=== PATIENT | male | born 1935 | race Caucasian/White ===

== ENCOUNTER 2017-01-12 05:09 | Day surgery (SDC) | payer MEDICARE, OTHER ==
[2017-01-12] MEDS ORDERED: Midazolam 1 MG/ML 2 ML SDV ONE (06:14)
[2017-01-12] MEDS ORDERED: fentaNYL 100 MCG/2 ML SDV ONE (06:15)
[2017-01-12] MEDS ORDERED: Sodium Chloride 0.9% 10 ML Syringe FLUSH PRN (06:21)
[2017-01-12] MEDS ORDERED: fentaNYL 100 MCG/2 ML SDV IV ONE ×3 (06:28→16:41)
[2017-01-12] MEDS ORDERED: Midazolam 1 MG/ML 2 ML SDV IV ONE ×3 (06:30→16:41)
[2017-01-12] MEDS ORDERED: Dextrose 5%-0.45% NaCl 1,000 ML IV SCH (06:30)
--- NOTE | 2017-01-12 06:53 | OR ---
DATE: 01/12/2017 PROCEDURE: Total colonoscopy. INSTRUMENT USED: CF-H180AL Olympus video colonoscope. PREMEDICATIONS: Fentanyl 100 mcg intravenous, Versed 1.5 mg intravenous, nasal O2 cannula. The procedure was done under pulse oximetry, BP recording, and mop handle assembler. INDICATION: The patient with previous colon resection for cancer. Surveillance colonoscopy examination is done for detection of any polypoid lesions and removal, endoscopic hemostasis therapy if needed. DESCRIPTION OF PROCEDURE: Initial rectal exam was unremarkable. Rigid anoscopy was normal. The colonoscope was passed with ease up to the surgical site, photographs were taken. No bleeding was noted from any of the visualized areas at the commencement of the examination. No stricture. No vascular ectasia. No large isolated ulcerations seen. No evidence of diffuse inflammatory bowel disease in the form of friability, contact bleeding, or ulcerations. No polyp or tumor mass identified. Probing the proximal sides of folds and flexures, using adequate distention and clearing of the stool material, withdrawal of the scope was made. No bleeding was noted from any of the visualized areas at the completion of examination. IMPRESSION: Normal study. The patient tolerated the procedure well. [facility] /[id number]
[2017-01-12 09:09] VITALS: BP 109/68
--- NOTE | 2017-01-12 12:14 | LETTER ---
01/12/2017 Amari Celestin MD Oncology [facility] [address] [address] RE: DIEGO GUPTAMOND : [address] Celestin Mr[address] Diego Gupta had colonoscopic examination done this morning and he tolerated the procedure well. I herewith send a copy of the endoscopy note and photographs for your review. Thank you. Sincerely, [facility] /[id number]
== END 2017-01-12 08:44 | disposition home or self-care (01) ==
LOC: DL.ENDO 05:09
PROVIDERS: ATTEND Internal Medicine Gastroenterology
DX: Z12.11 Encounter for screening for malignant neoplasm of colon (principal); I12.9 Hypertensive chronic kidney disease with stage 1 through stage 4 chronic kidney disease, or unspecified chronic kidney disease; N18.9 Chronic kidney disease, unspecified; E78.5 Hyperlipidemia, unspecified; K21.9 Gastro-esophageal reflux disease without esophagitis; I25.10 Atherosclerotic heart disease of native coronary artery without angina pectoris; I67.9 Cerebrovascular disease, unspecified
CPT/HCPCS: 45378; J2250; J3010; J7042

== ENCOUNTER 2018-01-22 21:44 | Emergency (ER) | payer MEDICARE, OTHER ==
[2018-01-22] MEDS ORDERED: Sodium Chloride 0.9% 1,000 ML IV ONE (22:14)
[2018-01-22] MEDS ORDERED: Metoclopramide 10 MG/2 ML SDV IVPUSH ONE (22:14)
[2018-01-22 22:24] VITALS: BP 140/81
--- NOTE | 2018-01-22 22:24 | EDM.PDOC ---
ED HPI GENERAL MEDICAL PROBLEM - General Chief Complaint: Abdominal Pain Stated Complaint: ABD PAIN Time Seen by Provider: 01/22/18 22:15 Source of Information: Reports: Patient, Family History Limitations: Reports: No Limitations - History of Present Illness INITIAL COMMENTS - FREE TEXT/NARRATIVE: abdominal pain and vomiting while eating supper, increase in hernia size and pain Middle Abdomen Pain Score (Numeric/FACES): 3 - Related Data Allergies Allergy/AdvReac Type Severity Reaction Status Date / Time No Known Allergies Allergy Verified 01/22/18 22:27 Home Meds: Home Meds Aspirin [Ecotrin] 81 mg PO DAILY 11/15/13 [History] Calcium Carbonate [Tums] 500 mg PO DAILY PRN 11/15/13 [History] Cholecalciferol (Vitamin D3) [Vitamin D3] 1,000 unit PO DAILY 11/15/13 [History] Clopidogrel [Plavix] 75 mg PO DAILY 11/15/13 [History] Multivitamin [Multi Vitamin Daily] 1 each PO DAILY 11/15/13 [History] [place]-3S/DHA/Epa/Fish Oil/D3 [Fish Wzx-[place]-0-Vit D Softgel] 2 gm PO DAILY [History] Ascorbic Acid 500 mg PO DAILY 03/13/15 [History] Calcium Polycarbophil [Fiber Tabs] 4 - 6 cap PO DAILY PRN 03/13/15 [History] Lisinopril 10 mg PO DAILY 03/13/15 [History] Pantoprazole [Protonix] 40 mg PO DAILY 03/13/15 [History] Donepezil [Aricept] 5 mg PO DAILY 01/09/17 [History] atorvaSTATin [Lipitor] 40 mg PO DAILY 01/09/17 [History] Past Medical History HEENT History: Reports: Impaired Vision, Other (See Below) Other HEENT History: WEARS CORRECTIVE LENS. UPPER DENTURE PLATE. LOWER PARTIAL PLATE Cardiovascular History: Reports: CAD, High Cholesterol, Hypertension Other Cardiovascular History: CEREBROVASCULAR DISEASE; CAROTID ARTERY DISEASE Respiratory History: Reports: None Gastrointestinal History: Reports: GERD, Other (See Below) Other Gastrointestinal History: ESOPHAGEAL MOTILITY DISORDER;. MULTIPLE ADENOMATOUS POLYPS. HX OF COLON CA REQUIRING RESECTION. INCISIONAL HERNIA Genitourinary History: Reports: Chronic Renal Insuffiency, Other (See Below) Other Genitourinary History: CHRONIC KIDNEY DISEASE (STAGE 3) Musculoskeletal History: Reports: Arthritis, Back Pain, Chronic Other Musculoskeletal History: SCIATICA OF RIGHT SIDE; KNEE PAIN Neurological History: Reports: TIA, Other (See Below) Other Neuro History: MEMORY IMPAIRMENT. CEREBROVASCULAR DISEASE Psychiatric History: Reports: Anxiety, Depression, Mood Swings, Panic Attack Endocrine/Metabolic History: Reports: None Other Endocrine/Metabolic History: PRE-DIABETES Hematologic History: Reports: Other (See Below) Other Hematologic History: HYPERLIPIDEMIA Immunologic History: Reports: None Oncologic (Cancer) History: Reports: Colon Dermatologic History: Reports: Eczema - Infectious Disease History Infectious Disease History: Reports: Chicken Pox, Measles - Past Surgical History HEENT Surgical History: Reports: Oral Surgery Cardiovascular Surgical History: Reports: Coronary Artery Bypass, Other (See Below) GI Surgical History: Reports: Colon, Other (See Below) Social & Family History - Caffeine Use Caffeine Use: Reports: Coffee Other Caffeine Use: AVERAGE OF 600 OZ DAILY DRINKS CONSTANTLY ED ROS GENERAL - Review of Systems Review Of Systems: See Below Constitutional: Denies: Fever HEENT: Reports: No Symptoms Respiratory: Reports: No Symptoms Cardiovascular: Reports: No Symptoms Endocrine: Reports: No Symptoms GI/Abdominal: Reports: Abdominal Pain, Decreased Appetite, Nausea, Vomiting Musculoskeletal: Reports: No Symptoms Skin: Reports: No Symptoms Neurological: Reports: No Symptoms ED EXAM, GI/ABD - Physical Exam Exam: See Below Exam Limited By: No Limitations General Appearance: Alert, Moderate Distress (dry heaves), Obese Eyes: Bilateral: EOMI Ears: Normal External Exam Nose: Normal Inspection Throat/Mouth: Normal Inspection Head: Atraumatic, Normocephalic Neck: Normal Inspection Respiratory/Chest: No Respiratory Distress, Lungs Clear Cardiovascular: Regular Rate, Rhythm, No Murmur GI/Abdominal Exam: Normal Bowel Sounds, Distended (mild), Tender (mild), Other ( ventral hernia, mild protrusion, appears to be 3 seperate pockets). No: Guarding Extremities: Normal Inspection Neurological: Alert, Oriented, Memory Loss Recent Events (chronic, dx'd with dementia) Psychiatric: Normal Affect, Normal Mood Skin Exam: Warm, Dry, Intact, Normal Color Course - Vital Signs Last Recorded V/S: Last Vital Signs Temp 97.2 F 01/22/18 22:13 Pulse 72 01/22/18 22:13 Resp 19 01/22/18 22:13 BP 140/81 01/22/18 22:13 Pulse Ox 97 01/22/18 22:13 - Orders/Labs/Meds Labs: Laboratory Tests 01/22/18 01/22/18 01/22/18 Range/Units 22:15 22:15 22:15 WBC 15.7 H (5.0-10.0) 10^3/uL RBC 4.54 L (4.6-6.2) 10^6/uL Hgb 14.5 (14.0-18.0) g/dL Hct 43.8 (40.0-54.0) % MCV 96.5 D (80-100) fL MCH 31.9 (27.0-34.0) pg MCHC 33.1 (33.0-35.0) g/dL Plt Count 295 (150-450) 10^3/uL Neut % (Auto) 74.6 (42.2-75.2) % Lymph % (Auto) 15.3 L (20.5-50.1) % [place] % (Auto) 8.9 H (2-8) % Eos % (Auto) 1.0 (1.0-3.0) % Baso % (Auto) 0.2 (0.0-1.0) % Sodium 135 (135-145) mmol/L Potassium 4.4 (3.6-5.0) mmol/L Chloride 101 (101-111) mmol/L Carbon Dioxide 24.0 (21.0-31.0) mmol/L Anion Gap 14.4 BUN 15 (7-18) mg/dL Creatinine 1.4 H (0.6-1.3) mg/dL Est Cr Clr Drug Dosing 42.00 mL/min Estimated GFR (MDRD) 49 BUN/Creatinine Ratio 10.71 Glucose 150 H (74-105) mg/dL Lactic Acid 1.7 (0.5-2.2) mmol/L Calcium 9.2 (8.4-10.2) mg/dl Total Bilirubin 0.5 (0.2-1.0) mg/dL AST 22 (10-42) IU/L ALT 14 (10-60) IU/L Alkaline Phosphatase 56 (42-121) IU/L Troponin I < 0.02 (0.00-0.02) ng/ml B-Natriuretic Peptide 35 (0-100) pg/ml Total Protein 7.5 (6.7-8.2) g/dl Albumin 4.1 (3.2-5.5) g/dl Globulin 3.4 Albumin/Globulin Ratio 1.21 Amylase 89 (28-100) U/L Lipase 42 (22-51) U/L Meds: Medications Discontinued Medications Generic Name Dose Route Start Last Admin Trade Name Freq PRN Reason Stop Dose Admin Sodium Chloride 1,000 mls @ 150 mls/hr 01/22/18 22:14 01/22/18 22:33 Normal Saline IV 01/23/18 04:53 150 mls/hr .BOLUS ONE Administration Iopamidol 75 ml 01/22/18 23:07 01/23/18 00:43 Isovue-300 (61%) IVPUSH 01/22/18 23:08 Not Given ONETIME ONE Metoclopramide HCl 10 mg 01/22/18 22:14 01/22/18 22:31 Reglan IVPUSH 01/22/18 22:15 10 mg ONETIME ONE Administration Departure - Departure Time of Disposition: 01:40 Disposition: DC/Tfer to Acute Hospital 02 Condition: Fair, Undetermined Clinical Impression: Small bowel obstruction - Discharge Information Referrals: Liz Umanzor PA [Primary Care Provider] - Forms: ED Department Discharge
[2018-01-22 22:43] LABS: CHLORIDE,CL 101 mmol/L (101-111); SODIUM,NA 135 mmol/L (135-145)
[2018-01-22] MEDS: Iopamidol 612 MG/ML 75 ML Bottle IVPUSH ONE (23:29)
[2018-01-23] MEDS: Iopamidol 612 MG/ML 75 ML Bottle IVPUSH ONE (00:43)
== END 2018-01-23 01:42 ==
LOC: DL.ED 21:44
DX: K56.609 Unspecified intestinal obstruction, unspecified as to partial versus complete obstruction (principal); I12.9 Hypertensive chronic kidney disease with stage 1 through stage 4 chronic kidney disease, or unspecified chronic kidney disease; N18.3 Chronic kidney disease, stage 3 (moderate); E78.00 Pure hypercholesterolemia, unspecified; K21.9 Gastro-esophageal reflux disease without esophagitis; E78.5 Hyperlipidemia, unspecified; F41.9 Anxiety disorder, unspecified; F32.9 Major depressive disorder, single episode, unspecified; Z79.82 Long term (current) use of aspirin; Z79.899 Other long term (current) drug therapy
CPT/HCPCS: 36415; 74177; 80053; 82150; 83605; 83690; 83880; 84484; 85025; 96361; 96374; 99285; J2765; J7030; Q9967; 99284

== ENCOUNTER 2019-10-08 13:32 | Emergency (ER) | payer MEDICARE, OTHER ==
[2019-10-08 13:32] VITALS: BP 131/81; PULSE 99
--- NOTE | 2019-10-08 14:10 | EDM.PDOC ---
ED HPI GENERAL MEDICAL PROBLEM - General Chief Complaint: Neurological Problem Stated Complaint: AMBULANCE Time Seen by Provider: 10/08/19 13:35 Source of Information: Reports: Patient, EMS, Family (), Old Records, RN, RN Notes Reviewed History Limitations: Reports: Other (Dementia) - History of Present Illness INITIAL COMMENTS - FREE TEXT/NARRATIVE: Pt arrives from home by ambulance with report that he is a dementia and post multiple CVA patient who lives at home with his , and usually sleeps in and wakes every day at 12:30PM. Today his tried to wake him at 12:30 but he would only open one eye (she doesn't recall which eye), but he would not speak, and would not move. She lifted his arms and they dropped to his side completely flaccid. He would not move his legs either. The called 911, but when the ambulance arrived (45 minutes from the onset) he was back to normal. Pt arrives awake, alert, conversant, moving all extremities without weakness, and has no complaints. He is pleasantly demented. Pt's states that as he woke from this episode, she asked what he was doing the pt stated, "he was tending chickens". She asked him why, and he stated, "because there are 32 chickens, and they have to be taken care of". Onset: Today Onset Date: 10/08/19 Onset Time: 12:30 Duration: Resolved Prior to Arrival Location: Reports: Generalized Improves with: Reports: None Worsens with: Reports: None Associated Symptoms: Reports: No Other Symptoms - Related Data Allergies Allergy/AdvReac Type Severity Reaction Status Date / Time No Known Allergies Allergy Verified 10/08/19 13:33 Home Meds: Home Meds Aspirin [Ecotrin] 81 mg PO DAILY 11/15/13 [History] Calcium Carbonate [Tums] 500 mg PO DAILY PRN 11/15/13 [History] Cholecalciferol (Vitamin D3) [Vitamin D3] 1,000 unit PO DAILY 11/15/13 [History] Clopidogrel [Plavix] 75 mg PO DAILY 11/15/13 [History] Multivitamin [Multi Vitamin Daily] 1 each PO DAILY 11/15/13 [History] [place]-3S/DHA/Epa/Fish Oil/D3 [Fish Buv-[place]-3-Vit D Softgel] 2 gm PO DAILY [History] Ascorbic Acid 500 mg PO DAILY 03/13/15 [History] Calcium Polycarbophil [Fiber Tabs] 4 - 6 cap PO DAILY PRN 03/13/15 [History] Lisinopril 10 mg PO DAILY 03/13/15 [History] Pantoprazole [Protonix] 40 mg PO DAILY 03/13/15 [History] Donepezil [Aricept] 5 mg PO DAILY 01/09/17 [History] atorvaSTATin [Lipitor] 40 mg PO DAILY 01/09/17 [History] Past Medical History HEENT History: Reports: Impaired Vision, Other (See Below) Other HEENT History: WEARS CORRECTIVE LENS. UPPER DENTURE PLATE. LOWER PARTIAL PLATE Cardiovascular History: Reports: CAD, High Cholesterol, Hypertension Other Cardiovascular History: CEREBROVASCULAR DISEASE; CAROTID ARTERY DISEASE Respiratory History: Reports: None Gastrointestinal History: Reports: GERD, Other (See Below) Other Gastrointestinal History: ESOPHAGEAL MOTILITY DISORDER;. MULTIPLE ADENOMATOUS POLYPS. HX OF COLON CA REQUIRING RESECTION. INCISIONAL HERNIA Genitourinary History: Reports: Chronic Renal Insuffiency, Other (See Below) Other Genitourinary History: CHRONIC KIDNEY DISEASE (STAGE 3) Musculoskeletal History: Reports: Arthritis, Back Pain, Chronic Other Musculoskeletal History: SCIATICA OF RIGHT SIDE; KNEE PAIN Neurological History: Reports: TIA, Other (See Below) Other Neuro History: MEMORY IMPAIRMENT. CEREBROVASCULAR DISEASE Psychiatric History: Reports: Anxiety, Depression, Mood Swings, Panic Attack Endocrine/Metabolic History: Reports: None Other Endocrine/Metabolic History: PRE-DIABETES Hematologic History: Reports: Other (See Below) Other Hematologic History: HYPERLIPIDEMIA Immunologic History: Reports: None Oncologic (Cancer) History: Reports: Colon Dermatologic History: Reports: Eczema - Infectious Disease History Infectious Disease History: Reports: Chicken Pox, Measles - Past Surgical History Head Surgeries/Procedures: Reports: None HEENT Surgical History: Reports: Oral Surgery Cardiovascular Surgical History: Reports: Coronary Artery Bypass, Other (See Below) GI Surgical History: Reports: Colon, Other (See Below) Social & Family History - Tobacco Use Smoking Status *Q: Former Smoker Used Tobacco, but Quit: Yes Month/Year Tobacco Last Used: unknown Second Hand Smoke Exposure: No - Caffeine Use Caffeine Use: Reports: Coffee Other Caffeine Use: AVERAGE OF 600 OZ DAILY DRINKS CONSTANTLY - Recreational Drug Use Recreational Drug Use: No Drug Use in Last 12 Months: No - Living Situation & Occupation Living situation: Reports: with Spouse Occupation: Retired ED ROS GENERAL - Review of Systems Review Of Systems: Unable To Obtain Reason Not Obtained: dementia ED EXAM, NEURO - Physical Exam Exam: See Below Exam Limited By: Other (Dementia) General Appearance: Alert, WD/WN, No Apparent Distress Eye Exam: Bilateral Eye: EOMI, Normal Inspection, PERRL Ears: Normal External Exam, Hearing Grossly Normal Nose: Normal Inspection, Normal Mucosa, No Blood Throat/Mouth: Normal Inspection, Normal Lips, Normal Teeth, Normal Gums, Normal Oropharynx, Normal Voice, No Airway Compromise Head Exam: Atraumatic, Normocephalic Neck: Normal Inspection, Supple, Non-Tender, Full Range of Motion Respiratory/Chest: No Respiratory Distress, Lungs Clear, Normal Breath Sounds, No Accessory Muscle Use, Chest Non-Tender Cardiovascular: Normal Peripheral Pulses, Regular Rate, Rhythm, No Edema, No Gallop, No JVD, No Murmur, No Rub GI/Abdominal: Normal Bowel Sounds, Soft, Non-Tender, No Organomegaly, No Distention, No Abnormal Bruit, No Mass Neurological: Alert, Normal Mood/Affect, Normal Dorsiflexion, CN II-XII Intact, Normal Plantar Flexion, Normal Gait, No Motor/Sensory Deficits, Oriented x 3 Back Exam: Normal Inspection Extremities: Normal Inspection, Normal Range of Motion, Non-Tender, No Pedal Edema, Normal Capillary Refill Psychiatric: Normal Affect, Normal Mood Skin Exam: Warm, Dry, Intact, Normal Color, No Rash EKG INTERPRETATION EKG Date: 10/08/19 Time: 14:22 Rhythm: Other (sinus rhythm) Rate (Beats/Min): 60 [place]: Normal P-Wave: Present QRS: RBBB (with multiform PVC) ST-T: Normal QT: Normal EKG Interpretation Comments: EKG #2 at 1735 hours showed sinus rhythm with a rate of 56, right bundle branch block with PVCs Course - Vital Signs Last Recorded V/S: Last Vital Signs Temp 96.6 F 10/08/19 13:29 Pulse 99 10/08/19 13:29 Resp 18 10/08/19 13:29 BP 131/81 10/08/19 13:29 Pulse Ox 96 10/08/19 13:29 - Orders/Labs/Meds Orders: Active Orders 24 hr Category Date Time Status EKG 12 Lead [EKG Documentation Completion] [RC] STAT Care 10/08/19 13:40 Active EKG Documentation Completion [RC] ROUTINE Care 10/08/19 17:30 Active Regular Diet [DIET] Diet 10/08/19 Dinner Active Labs: Laboratory Tests 10/08/19 10/08/19 10/08/19 Range/Units 13:52 13:52 15:10 WBC 6.5 (5.0-10.0) 10^3/uL RBC 4.29 L (4.6-6.2) 10^6/uL Hgb 13.9 L (14.0-18.0) g/dL Hct 42.4 (40.0-54.0) % MCV 98.8 (80-100) fL MCH 32.4 (27.0-34.0) pg MCHC 32.8 L (33.0-35.0) g/dL Plt Count 257 (150-450) 10^3/uL Neut % (Auto) 62.6 (42.2-75.2) % Lymph % (Auto) 22.4 (20.5-50.1) % [place] % (Auto) 11.4 H (2-8) % Eos % (Auto) 2.8 (1.0-3.0) % Baso % (Auto) 0.8 (0.0-1.0) % Sodium 137 (135-145) mmol/L Potassium 4.3 (3.6-5.0) mmol/L Chloride 103 (101-111) mmol/L Carbon Dioxide 27.0 (21.0-31.0) mmol/L Anion Gap 11.3 BUN 19 H (7-18) mg/dL Creatinine 1.3 (0.6-1.3) mg/dL Est Cr Clr Drug Dosing 47.26 mL/min Estimated GFR (MDRD) 53 BUN/Creatinine Ratio 14.61 Glucose 103 (74-105) mg/dL Calcium 8.7 (8.4-10.2) mg/dl Total Bilirubin 0.7 (0.2-1.0) mg/dL AST 14 (10-42) IU/L ALT 11 (10-60) IU/L Alkaline Phosphatase 46 (42-121) IU/L Troponin I 0.04 H* (0.00-0.02) ng/ml Total Protein 7.0 (6.7-8.2) g/dl Albumin 3.7 (3.2-5.5) g/dl Globulin 3.3 Albumin/Globulin Ratio 1.12 Urine Color Yellow (YELLOW) Urine Appearance Clear (CLEAR) Urine pH 7.0 (5.0-9.0) Ur Specific [place] 1.025 (1.005-1.030) Urine Protein Negative (NEGATIVE) Urine Glucose (UA) Negative (NEGATIVE) Urine Ketones Negative (NEGATIVE) Urine Occult Blood Trace-intact H (NEGATIVE) Urine Nitrite Negative (NEGATIVE) Urine Bilirubin Negative (NEGATIVE) Urine Urobilinogen 0.2 (0.2-1.0) mg/dL Ur Leukocyte Esterase Negative (NEGATIVE) Urine RBC 0-5 /HPF Urine WBC 0-5 (0-5/HPF) /HPF Ur Epithelial Cells Rare (NOT SEEN) /HPF Amorphous Sediment Occasional (NOT SEEN) /HPF Urine Bacteria Rare (0-FEW/HPF) /HPF Urine Mucus Occasional (NOT SEEN) /LPF 10/08/19 Range/Units 17:54 WBC (5.0-10.0) 10^3/uL RBC (4.6-6.2) 10^6/uL Hgb (14.0-18.0) g/dL Hct (40.0-54.0) % MCV (80-100) fL MCH (27.0-34.0) pg MCHC (33.0-35.0) g/dL Plt Count (150-450) 10^3/uL Neut % (Auto) (42.2-75.2) % Lymph % (Auto) (20.5-50.1) % [place] % (Auto) (2-8) % Eos % (Auto) (1.0-3.0) % Baso % (Auto) (0.0-1.0) % Sodium (135-145) mmol/L Potassium (3.6-5.0) mmol/L Chloride (101-111) mmol/L Carbon Dioxide (21.0-31.0) mmol/L Anion Gap BUN (7-18) mg/dL Creatinine (0.6-1.3) mg/dL Est Cr Clr Drug Dosing mL/min Estimated GFR (MDRD) BUN/Creatinine Ratio Glucose (74-105) mg/dL Calcium (8.4-10.2) mg/dl Total Bilirubin (0.2-1.0) mg/dL AST (10-42) IU/L ALT (10-60) IU/L Alkaline Phosphatase (42-121) IU/L Troponin I 0.05 H* (0.00-0.02) ng/ml Total Protein (6.7-8.2) g/dl Albumin (3.2-5.5) g/dl Globulin Albumin/Globulin Ratio Urine Color (YELLOW) Urine Appearance (CLEAR) Urine pH (5.0-9.0) Ur Specific [place] (1.005-1.030) Urine Protein (NEGATIVE) Urine Glucose (UA) (NEGATIVE) Urine Ketones (NEGATIVE) Urine Occult Blood (NEGATIVE) Urine Nitrite (NEGATIVE) Urine Bilirubin (NEGATIVE) Urine Urobilinogen (0.2-1.0) mg/dL Ur Leukocyte Esterase (NEGATIVE) Urine RBC /HPF Urine WBC (0-5/HPF) /HPF Ur Epithelial Cells (NOT SEEN) /HPF Amorphous Sediment (NOT SEEN) /HPF Urine Bacteria (0-FEW/HPF) /HPF Urine Mucus (NOT SEEN) /LPF Meds: Medications Discontinued Medications Generic Name Dose Route Start Last Admin Trade Name Freq PRN Reason Stop Dose Admin Aspirin 324 mg 10/08/19 15:04 10/08/19 15:10 Aspirin PO 10/08/19 15:05 324 mg ONETIME ONE Administration - Radiology Interpretation Free Text/Narrative:: 2 PROCEDURE INFORMATION: Exam: CT Head Without Contrast Exam date and time: 10/08/2019 1:59 PM Age: 83 years old Clinical indication: Altered mental status/memory loss; Confusion or disorientation; Additional info: Alt mental status/decreased level of consciousness. Briefly unresponsive, flaccid b/l arms and legs, unable to speak x45 minutes, now resolved. TECHNIQUE: Imaging protocol: Computed tomography of the head without contrast. Radiation optimization: All CT scans at this facility use at least one of these dose optimization techniques: automated exposure control; mA and/or kV adjustment per patient size (includes targeted exams where dose is matched to clinical indication); or iterative reconstruction. Other technique: STROKE PROTOCOL was implemented. COMPARISON: CT Head wo Cont 06/19/2015 11:09 PM FINDINGS: Brain: Normal. No hemorrhage. Unremarkable white matter. No mass effect. Ventricles: Normal. No ventriculomegaly. Bones/joints: Unremarkable. No acute fracture. Sinuses: Visualized sinuses are unremarkable. No fluid levels. Mastoid air cells: Visualized mastoid air cells are well aerated. Soft tissues: Unremarkable. IMPRESSION: No acute intracranial changes. ASSESSMENT: DIEGO GUPTA | Final Radiology Report CONFIDENTIALITY STATEMENT This report is intended only for use by the referring physician, and only in accordance with law. If you received this in error, call [phone]. Page 2 of 2 ASPECTS ([place] Stroke Program Early CT Score) is 10. Thank you for allowing us to participate in the care of your patient. Dictated and Authenticated by: Amadou Scanlon MD 10/08/2019 2:15 PM Central Time ([place] & [place]) - Re-Assessments/Exams Free Text/Narrative Re-Assessment/Exam: 10/08/19 19:13 Troponin elevated 0.04 to 0.05. Plan to transfer pt to Dr. Rios for alt. mental status with elev. troponin. 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 Qualified Code(s): R40.3 - Persistent vegetative state - Discharge Information *PRESCRIPTION DRUG MONITORING PROGRAM REVIEWED*: Not Applicable *COPY OF PRESCRIPTION DRUG MONITORING REPORT IN PATIENT CODY: Not Applicable Forms: ED Department Discharge, Interfacility Transfer EMTALA Sepsis Event Note - Evaluation Sepsis Screening Result: No Definite Risk - Focused Exam Vital Signs: Vital Signs Temp Pulse Resp BP Pulse Ox 10/08/19 13:29 96.6 F 99 18 131/81 96 Date Exam was Performed: 10/08/19 Time Exam was Performed: 19:13 - My Orders Last 24 Hours: My Active Orders 10/08/19 13:40 EKG 12 Lead [EKG Documentation Completion] [RC] STAT 10/08/19 17:30 EKG Documentation Completion [RC] ROUTINE 10/08/19 Dinner Regular Diet [DIET] - Assessment/Plan Last 24 Hours: My Active Orders 10/08/19 13:40 EKG 12 Lead [EKG Documentation Completion] [RC] STAT 10/08/19 17:30 EKG Documentation Completion [RC] ROUTINE 10/08/19 Dinner Regular Diet [DIET]
[2019-10-08 14:19] LABS: ANION GAP 11.3
[2019-10-08] MEDS ORDERED: Aspirin 81 MG Tab.Chew PO ONE (15:04)
== END 2019-10-08 22:19 ==
LOC: DL.ED 13:32
DX: R41.82 Altered mental status, unspecified (principal); R79.89 Other specified abnormal findings of blood chemistry; I25.10 Atherosclerotic heart disease of native coronary artery without angina pectoris; E78.00 Pure hypercholesterolemia, unspecified; K21.9 Gastro-esophageal reflux disease without esophagitis; I12.9 Hypertensive chronic kidney disease with stage 1 through stage 4 chronic kidney disease, or unspecified chronic kidney disease; N18.3 Chronic kidney disease, stage 3 (moderate); Z79.899 Other long term (current) drug therapy; Z79.82 Long term (current) use of aspirin; Z79.02 Long term (current) use of antithrombotics/antiplatelets; Z86.73 Personal history of transient ischemic attack (TIA), and cerebral infarction without residual deficits; Z87.891 Personal history of nicotine dependence
CPT/HCPCS: 36415; 70450; 80053; 81001; 84484; 85025; 93005; 99285; A9270

== ENCOUNTER 2020-07-29 09:55 | Day surgery (SDC) | payer OTHER, MEDICARE ==
[2020-07-29] MEDS ORDERED: Midazolam 1 MG/ML 2 ML SDV IV ONE (09:56)
[2020-07-29] MEDS ORDERED: Dexamethasone 4 MG/ML SDV IV ONE (09:56)
[2020-07-29] MEDS ORDERED: Sodium Chloride 0.9% 10 ML Syringe IV ONE (09:56)
[2020-07-29] MEDS ORDERED: Cataract Ophth Solution EYERT ONE (10:15)
[2020-07-29] MEDS ORDERED: Timolol Maleate 0.5% Ophth Soln 5 ML Bottle EYERT ONE (10:15)
[2020-07-29] MEDS ORDERED: Phenylephrine 10% Ophth Soln 5 ML Bot EYERT ONE (10:15)
[2020-07-29] MEDS ORDERED: Povidone-Iodine 5% Sterile Ophth Soln 30 ML Bottle EYERT ONE ×2 (10:15→11:11)
[2020-07-29] MEDS ORDERED: Phenylephrine 10% Ophth Soln 5 ML Bot EYERT PRN (10:15)
[2020-07-29] MEDS ORDERED: Sodium Chloride 0.9% 10 ML Syringe FLUSH PRN (10:15)
[2020-07-29] MEDS ORDERED: Acetaminophen 325 MG Tab PO PRN (10:15)
[2020-07-29] MEDS ORDERED: Moxifloxacin 0.5% Ophth Soln 3 ML Bottle EYERT ONE (10:15)
[2020-07-29] MEDS ORDERED: Proparacaine 0.5% Ophth Soln 15 ML Bottle EYERT ONE (10:15)
[2020-07-29] MEDS ORDERED: Tropicamide 1% Ophth Soln 15 ML Bottle EYERT ONE (10:15)
[2020-07-29] MEDS ORDERED: Ondansetron 4 MG/2 ML SDV IVPUSH PRN (10:15)
[2020-07-29] MEDS ORDERED: Tetracaine HCl/PF 0.5% 4 ML Bottle EYERT ONE (11:10)
[2020-07-29] MEDS ORDERED: Lidocaine 1% 30 ML SDV ONE (11:10)
[2020-07-29] MEDS ORDERED: Apraclonidine 0.5% Ophth Soln 5 ML Bot EYERT ONE (11:11)
[2020-07-29] MEDS ORDERED: Balanced Salt Solution Ophth Irrig 500 ML Bottle IOCULAR ONE (11:12)
[2020-07-29] MEDS ORDERED: Vancomycin 500 MG SDV EYERT ONE (11:12)
[2020-07-29] MEDS ORDERED: Dexamethasone/Neomycin/Polymyxin B Ophth Oint 3.5 GM Tube EYERT ONE (11:12)
[2020-07-29] MEDS ORDERED: Chondroitin Sulfate/Hyaluronate Sodium Ophth Inj 0.75 ML Syringe EYERT ONE (11:13)
[2020-07-29] MEDS ORDERED: Diclofenac Sodium 0.1% Ophth Soln 5 ML Bottle EYERT ONE (11:24)
[2020-07-29] MEDS ORDERED: Carbachol 0.01% Intraocular 1.5 ML Vial EYERT ONE (11:24)
[2020-07-29 13:21] VITALS: BP 116/62; PULSE 79
--- NOTE | 2020-08-03 07:02 | OR ---
DATE: 07/29/2020 PREOPERATIVE DIAGNOSIS: Visually significant mixed cataract, right eye. POSTOPERATIVE DIAGNOSIS: Visually significant mixed cataract, right eye. PROCEDURE: Complex cataract right eye with small pupil/Malyugin ring. ANESTHESIA: Topical/local MAC. COMPLICATIONS: None. INDICATION: Mr. Campos was seen in the clinic. Examination revealed visually significant mixed cataract. I explained options, offered cataract surgery, and I explained risks, including, but not limited to, infection, retinal detachment, loss of vision, need for additional surgery, and risks associated with anesthesia. We discussed implant options. He has requested a monofocal implant. He has significant preexisting corneal stigmatism and understands that his visual potential will be limited without glasses. OPERATIVE DESCRIPTION: After informed consent was obtained and the risks, benefits, and alternatives were explained, the patient was brought to the operative suite and topical anesthesia was administered. The patient was then prepped and draped in the sterile fashion and attention was placed on the right eye. A sterile lid speculum was placed into the right eye to allow operative exposure. A full-thickness paracentesis was made in the temporal portion of the operative eye. Preservative-free lidocaine 0.1 mL was injected into the anterior chamber followed by viscoelastic. A full-thickness corneal incision was then made into the anterior chamber. A bent needle cystotome was used to create a small janina in the anterior capsule. The capsulorrhexis forceps was then used to create a 360-degree curvilinear capsulorrhexis. The nucleus was then removed using a phacoemulsification handpiece and the remaining cortical material was then removed with irrigation and aspiration handpiece. Following removal of the cortical material, the capsular bag was then inspected and noted to be free of any holes or tears. Viscoelastic was then injected into the capsular bag and the intraocular lens was inserted into the capsular bag. The viscoelastic material was then removed from both the anterior and posterior chambers and from behind the IOL. The lens and capsular bag were then reinspected. The IOL was well centered and the capsular bag intact. The wound and paracentesis sites were inspected and hydrated with balanced saline solution. Both were found to be self- sealing. The intraocular pressure was assessed digitally and found to be within normal range. A good red reflex was noted at the completion of the procedure. No complications occurred during the operation. At the completion of the procedure, Maxitrol, Voltaren, and Iopidine drops were placed into the operative eye. A sterile eye shield was placed over the operative eye and the patient was transported to the postoperative recovery area having tolerated the procedure well. Postoperative instructions were given along with a postoperative appointment. The patient was advised to call with any questions or concerns. [facility] /[id number]
== END 2020-07-29 13:00 | disposition home or self-care (01) ==
LOC: DL.SDS 09:55
PROVIDERS: ATTEND Ophthalmology
DX: H25.813 Combined forms of age-related cataract, bilateral (principal); I12.9 Hypertensive chronic kidney disease with stage 1 through stage 4 chronic kidney disease, or unspecified chronic kidney disease; N18.9 Chronic kidney disease, unspecified; E78.5 Hyperlipidemia, unspecified; M54.5 Low back pain; G89.29 Other chronic pain; Z87.891 Personal history of nicotine dependence; Z79.899 Other long term (current) drug therapy; Z90.49 Acquired absence of other specified parts of digestive tract
CPT/HCPCS: A9270-GY; J1100; J2001; J2250; J3370; V2632

== ENCOUNTER 2021-01-02 00:49 | Observation (INO) | payer OTHER, MEDICARE ==
--- NOTE | 2021-01-01 22:29 | EDM.PDOC ---
ED HPI GENERAL MEDICAL PROBLEM - General Stated Complaint: AMBULANCE Time Seen by Provider: 01/01/21 23:00 Source of Information: Reports: Patient, EMS, Family History Limitations: Reports: No Limitations - History of Present Illness INITIAL COMMENTS - FREE TEXT/NARRATIVE: This 85 yo male patient was brought to the ED by [facility] due to nausea, vomiting and a low grade fever. The patient's reports the patient started to be nauseated and vomiting this evening at about 1730 which had continued until EMS was called. The patient denies any abdominal pain at the time of the visit. The patient does have 3 hernias (periumbilical). The patient has a history of colon cancer that is currently in remission, a previous small bowel obstruction and dementia. Onset: Today Onset Date: 01/01/21 Onset Time: 17:30 Duration: Constant Location: Reports: Abdomen Quality: Reports: Other Severity: Moderate Improves with: Reports: None Worsens with: Reports: None Context: Reports: Other Associated Symptoms: Reports: Nausea/Vomiting - Related Data Allergies Allergy/AdvReac Type Severity Reaction Status Date / Time caffeine AdvReac Anxiety Verified 01/01/21 22:38 Home Meds: Home Meds Aspirin [Ecotrin] 81 mg PO DAILY 11/15/13 [History] Calcium Carbonate [Tums] 500 mg PO DAILY PRN 11/15/13 [History] Cholecalciferol (Vitamin D3) [Vitamin D3] 1,000 unit PO DAILY 11/15/13 [History] Multivitamin [Multi Vitamin Daily] 1 each PO DAILY 11/15/13 [History] Lisinopril 10 mg PO DAILY 03/13/15 [History] Pantoprazole [Protonix] 40 mg PO DAILY 03/13/15 [History] Donepezil [Aricept] 10 mg PO DAILY 01/09/17 [History] atorvaSTATin [Lipitor] 40 mg PO DAILY 01/09/17 [History] Divalproex Sodium [Depakote ER] 250 mg PO DAILY 07/28/20 [History] Memantine HCl [Namenda] 10 mg PO BID 07/28/20 [History] Sertraline [Zoloft] 100 mg PO DAILY 07/28/20 [History] traZODone HCl [Trazodone HCl] 50 mg PO BEDTIME 07/28/20 [History] Past Medical History HEENT History: Reports: Cataract, Impaired Vision, Other (See Below) Other HEENT History: WEARS CORRECTIVE LENS. UPPER DENTURE PLATE. LOWER PARTIAL PLATE Cardiovascular History: Reports: CAD, High Cholesterol, Hypertension Other Cardiovascular History: CEREBROVASCULAR DISEASE; CAROTID ARTERY DISEASE Respiratory History: Reports: None Gastrointestinal History: Reports: GERD, Other (See Below) Other Gastrointestinal History: ESOPHAGEAL MOTILITY DISORDER;. MULTIPLE ADENOMATOUS POLYPS. HX OF COLON CA REQUIRING RESECTION. INCISIONAL HERNIA Genitourinary History: Reports: Chronic Renal Insuffiency, Other (See Below) Other Genitourinary History: CHRONIC KIDNEY DISEASE (STAGE 3) Musculoskeletal History: Reports: Arthritis, Back Pain, Chronic, Fracture Other Musculoskeletal History: SCIATICA OF RIGHT SIDE; KNEE PAIN Neurological History: Reports: TIA, Other (See Below) Other Neuro History: MEMORY IMPAIRMENT. CEREBROVASCULAR DISEASE Psychiatric History: Reports: Anxiety, Dementia, Depression, Mood Swings, Panic Attack Endocrine/Metabolic History: Reports: None Other Endocrine/Metabolic History: PRE-DIABETES Hematologic History: Reports: Other (See Below) Other Hematologic History: HYPERLIPIDEMIA Immunologic History: Reports: None Oncologic (Cancer) History: Reports: Colon, Other (See Below) Other Oncologic History: some kind of skin ca Dermatologic History: Reports: Eczema - Infectious Disease History Infectious Disease History: Reports: Chicken Pox, Measles - Past Surgical History Head Surgeries/Procedures: Reports: None HEENT Surgical History: Reports: Cataract Surgery, Eye Surgery, Oral Surgery Cardiovascular Surgical History: Reports: Coronary Artery Bypass, Other (See Below) Other Cardiovascular Surgeries/Procedures: CARDIAC CATH WITH STENT PLACEMENT. CABG X5 Respiratory Surgical History: Reports: None GI Surgical History: Reports: Colon, Colonoscopy, Hernia Repair/Other, Other (See Below) Other GI Surgeries/Procedures: "I'VE HAD PART OF MY COLON REMOVED DUE TO CANCEROUS POLYPS". S/P COLON CA SURGERY. HX OF COLONOIC ADENOMATOUS POLYPS Neurological Surgical History: Reports: None Musculoskeletal Surgical History: Reports: None Oncologic Surgical History: Reports: None Dermatological Surgical History: Reports: None Social & Family History - Caffeine Use Caffeine Use: Reports: None - Living Situation & Occupation Living situation: Reports: with Spouse Occupation: Retired ED ROS GENERAL - Review of Systems Review Of Systems: Comprehensive ROS is negative, except as noted in HPI. ED EXAM, GI/ABD - Physical Exam Exam: See Below Exam Limited By: Altered Mental Status (Alzheimers disease reported by patient's ) General Appearance: Alert, WD/WN, Mild Distress Eyes: Bilateral: Normal Appearance, EOMI Ears: Normal External Exam, Normal Canal, Hearing Grossly Normal, Normal TMs Nose: Normal Inspection, Normal Mucosa, No Blood Throat/Mouth: Normal Inspection, Normal Lips, Normal Teeth, Normal Gums, Normal Oropharynx, Normal Voice, No Airway Compromise Head: Atraumatic, Normocephalic Neck: Normal Inspection, Supple, Non-Tender, Full Range of Motion Respiratory/Chest: No Respiratory Distress, Lungs Clear, Normal Breath Sounds, No Accessory Muscle Use, Chest Non-Tender GI/Abdominal Exam: Normal Bowel Sounds, Soft, Non-Tender, No Distention, No Abnormal Bruit, Pelvis Stable, Other (Reducable periumbilical hernias) (Male) Exam: Deferred Rectal (Males) Exam: Deferred Back Exam: Normal Inspection, Full Range of Motion, NT Extremities: Normal Inspection, Normal Range of Motion, Non-Tender, Normal Capillary Refill, No Pedal Edema Neurological: Alert, Oriented, CN II-XII Intact, Normal Cognition, Normal Gait, Normal Reflexes, No Motor/Sensory Deficits Psychiatric: Normal Affect, Normal Mood Skin Exam: Warm, Dry, Intact, Normal Color, No Rash Lymphatic: No Adenopathy Course - Vital Signs Last Recorded V/S: Last Vital Signs Temp 36.8 C 01/01/21 22:23 Pulse 74 01/01/21 22:23 Resp 16 01/01/21 22:23 BP 127/63 01/01/21 22:23 Pulse Ox 94 L 01/01/21 22:23 - Orders/Labs/Meds Orders: Active Orders 24 hr Category Date Time Status Admission Diagnosis [ADT] Urgent ADT 01/02/21 00:45 Ordered Admission Status [Patient Status] [ADT] Routine ADT 01/02/21 00:45 Ordered COVID-19/FLU A+B [MOLEC] Urgent Lab 01/01/21 22:37 Ordered CULTURE BLOOD [BC] Stat Lab 01/01/21 22:35 Results Labs: Laboratory Tests 01/01/21 01/01/21 01/01/21 Range/Units 22:35 22:35 22:35 WBC 7.5 (5.0-10.0) 10^3/uL RBC 3.58 L (4.6-6.2) 10^6/uL Hgb 11.8 L D (14.0-18.0) g/dL Hct 36.2 L (40.0-54.0) % MCV 101.1 H (80-100) fL MCH 33.0 (27.0-34.0) pg MCHC 32.6 L (33.0-35.0) g/dL Plt Count 237 (150-450) 10^3/uL Neut % (Auto) 79.1 H (42.2-75.2) % Lymph % (Auto) 12.2 L (20.5-50.1) % Hale % (Auto) 8.1 H (2-8) % Eos % (Auto) 0.5 L (1.0-3.0) % Baso % (Auto) 0.1 (0.0-1.0) % Sodium 140 (136-145) mmol/L Potassium 4.2 (3.5-5.1) mmol/L Chloride 102 (98-107) mmol/L Carbon Dioxide 24 (21-32) mmol/L Anion Gap 18.2 H (7-13) mEq/L BUN 25 H (7-18) mg/dL Creatinine 1.46 H (0.70-1.30) mg/dL Est Cr Clr Drug Dosing 38.19 mL/min Estimated GFR (MDRD) 46 BUN/Creatinine Ratio 17.1 (No establ ref range) Glucose 135 H (70-99) mg/dL Lactic Acid 1.0 (0.4-2.0) mmol/L Calcium 8.3 L (8.5-10.1) mg/dL Total Bilirubin 0.5 (0.2-1.0) mg/dL AST 17 (15-37) U/L ALT 16 (16-63) U/L Alkaline Phosphatase 54 (46-116) U/L Total Protein 6.2 L (6.4-8.2) g/dL Albumin 2.8 L (3.4-5.0) g/dL Globulin 3.4 Albumin/Globulin Ratio 0.82 Meds: Medications Discontinued Medications Generic Name Dose Route Start Last Admin Trade Name Freq PRN Reason Stop Dose Admin Ondansetron HCl 4 mg 01/01/21 22:27 01/01/21 22:44 Ondansetron 4 Mg/2 Ml Sdv IVPUSH 01/01/21 22:28 4 mg ONETIME ONE Administration - Radiology Interpretation Free Text/Narrative:: [facility] [place] [facility] Final Radiology Report Call: [phone] assistance Online chat: [email or web address] Name: DIEGO GUPTA Age: 85Years M Date: 01/01/2021 SSN: -- : [id number] Study: CT ABDOMEN PELVIS WO CONT Requesting Physician: Joel Colindres Images: [id number] Addl Studies: Provided Clinical History: Nausea/vomiting Contrast: Without Contrast Medium: Contrast Amount: Contrast Method: Page 1 of 2 PROCEDURE INFORMATION: Exam: CT Abdomen And Pelvis Without Contrast Exam date and time: 01/01/2021 11:50 PM Age: 85 years old Clinical indication: Other: HX small bowel obstruction and colon CA; Additional info: Nausea/vomiting TECHNIQUE: Imaging protocol: Computed tomography of the abdomen and pelvis without contrast. Radiation optimization: All CT scans at this facility use at least one of these dose optimization techniques: automated exposure control; mA and/or kV adjustment per patient size (includes targeted exams where dose is matched to clinical indication); or iterative recons truction. COMPARISON: CT Abdomen Pelvis w Cont 01/22/2018 11:27 PM FINDINGS: Lungs: There is a background of centrilobular emphysema. There are some patchy ground-glass opacities present within the right lung base possibly representing pulmonary fibrosis or atelectasis although a patchy basilar pneumonitis cannot be excluded. Liver: Normal. No mass. Gallbladder and bile ducts: Normal. No calcified stones. No ductal dilation. Pancreas: Normal. No ductal dilation. Spleen: Normal. No splenomegaly. Adrenal glands: Normal. No mass. Kidneys and ureters: Strandy opacities are seen in the perinephric fascia bilaterally likely representing chronic scarring. Stomach and bowel: Status post right hemicolectomy. There is an umbilical hernia containing knuckle of small bowel. Nondilated small bowel enters the hernia sac, dilated small bowel exits the hernia sac, findings compatible with small-bowel obstruction, transition within the hernia sac. DIEGO GUPTA | Final Radiology Report CONFIDENTIALITY STATEMENT This report is intended only for use by the referring physician, and only in accordance with law. If you received this in error, call [phone]. Page 2 of 2 Appendix: No evidence of appendicitis. Intraperitoneal space: Unremarkable. No free air. No significant fluid collection. Vasculature: Calcifications are seen within the coronary arteries. Calcifications are seen in the thoracic and abdominal aorta, iliac arteries and femoral arteries bilaterally and within branches of the celiac, superior and inferior mesenteric arteries. Lymph nodes: Unremarkable. No enlarged lymph nodes. Urinary bladder: Unremarkable as visualized. Reproductive: Unremarkable as visualized. 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 Soft tissues: See "Stomach and bowel" finding. IMPRESSION: 1. There is an umbilical hernia containing a loop of small bowel. There is a small bowel obstruction within the umbilical hernia sac. 2. Patchy ground-glass opacity seen in the right lung base most probably represents pulmonary fibrosis or atelectasis superimposed over a background of centrilobular emphysema. Patchy basilar pneumonitis cannot be entirely excluded. Thank you for allowing us to participate in the care of your patient. Dictated and Authenticated by: Franck Dietrich MD 01/02/2021 12:24 AM Central Time ([place] & [place]) Departure - Departure Time of Disposition: 00:48 Disposition: Refer to Observation Condition: Fair Clinical Impression: Small bowel obstruction, Periumbilical hernia - Discharge Information Care Plan Goals: Discussed the patient's history, examination, lab and CT results with Dr. De Jesus. Dr. De Jesus accepted the patient for observation at [facility] in [place]. Sepsis Event Note (ED) - Focused Exam Vital Signs: Vital Signs Temp Pulse Resp BP Pulse Ox 01/01/21 22:23 36.8 C 74 16 127/63 94 L - My Orders Last 24 Hours: My Active Orders 01/01/21 22:35 CULTURE BLOOD [BC] Stat 01/01/21 22:37 COVID-19/FLU A+B [MOLEC] Urgent 01/02/21 00:45 Admission Diagnosis [ADT] Urgent Admission Status [Patient Status] [ADT] Routine - Assessment/Plan Last 24 Hours: My Active Orders 01/01/21 22:35 CULTURE BLOOD [BC] Stat 01/01/21 22:37 COVID-19/FLU A+B [MOLEC] Urgent 01/02/21 00:45 Admission Diagnosis [ADT] Urgent Admission Status [Patient Status] [ADT] Routine
[2021-01-01 23:10] LABS: ANION GAP 18.2 mEq/L (7-13)
--- NOTE | 2021-01-02 00:24 | CT ---
PROCEDURE INFORMATION: Exam: CT Abdomen And Pelvis Without Contrast Exam date and time: 01/01/2021 11:50 PM Age: 85 years old Clinical indication: Other: HX small bowel obstruction and colon CA; Additional info: Nausea/vomiting TECHNIQUE: Imaging protocol: Computed tomography of the abdomen and pelvis without contrast. Radiation optimization: All CT scans at this facility use at least one of these dose optimization techniques: automated exposure control; mA and/or kV adjustment per patient size (includes targeted exams where dose is matched to clinical indication); or iterative reconstruction. COMPARISON: CT Abdomen Pelvis w Cont 01/22/2018 11:27 PM FINDINGS: Lungs: There is a background of centrilobular emphysema. There are some patchy ground-glass opacities present within the right lung base possibly representing pulmonary fibrosis or atelectasis although a patchy basilar pneumonitis cannot be excluded. Liver: Normal. No mass. Gallbladder and bile ducts: Normal. No calcified stones. No ductal dilation. Pancreas: Normal. No ductal dilation. Spleen: Normal. No splenomegaly. Adrenal glands: Normal. No mass. Kidneys and ureters: Strandy opacities are seen in the perinephric fascia bilaterally likely representing chronic scarring. Stomach and bowel: Status post right hemicolectomy. There is an umbilical hernia containing knuckle of small bowel. Nondilated small bowel enters the hernia sac, dilated small bowel exits the hernia sac, findings compatible with small-bowel obstruction, transition within the hernia sac. Appendix: No evidence of appendicitis. Intraperitoneal space: Unremarkable. No free air. No significant fluid collection. Vasculature: Calcifications are seen within the coronary arteries. Calcifications are seen in the thoracic and abdominal aorta, iliac arteries and femoral arteries bilaterally and within branches of the celiac, superior and inferior mesenteric arteries. Lymph nodes: Unremarkable. No enlarged lymph nodes. Urinary bladder: Unremarkable as visualized. Reproductive: Unremarkable as visualized. 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 Soft tissues: See "Stomach and bowel" finding. IMPRESSION: 1. There is an umbilical hernia containing a loop of small bowel. There is a small bowel obstruction within the umbilical hernia sac. 2. Patchy ground-glass opacity seen in the right lung base most probably represents pulmonary fibrosis or atelectasis superimposed over a background of centrilobular emphysema. Patchy basilar pneumonitis cannot be entirely excluded.
[~2021-01-02 00:49] MED LIST: Ondansetron 4 MG/2 ML SDV IVPUSH ONE
[2021-01-02 01:33] LABS: CORONAVIRUS COVID-19 NAA NEGATIVE (NEGATIVE)
[2021-01-02] MEDS ORDERED: Ondansetron 4 MG Tab.DIS PO PRN (02:04)
[2021-01-02] MEDS ORDERED: Barium Sulfate w/v 2.1% Oral Susp 450 ML Bottle PO ONE (07:36)
--- NOTE | 2021-01-02 10:22 | CT ---
PROCEDURE INFORMATION: Exam: CT Abdomen And Pelvis Without Contrast Exam date and time: 01/02/2021 9:31 AM Age: 85 years old Clinical indication: Other: Reevaluate small bowel obstruction; Prior surgery; Surgery date: 6+ months; Surgery type: Colon surgery; Patient HX: Colon CA; Additional info: To reevaluate small bowel obstruction TECHNIQUE: Imaging protocol: Computed tomography of the abdomen and pelvis without contrast. Radiation optimization: All CT scans at this facility use at least one of these dose optimization techniques: automated exposure control; mA and/or kV adjustment per patient size (includes targeted exams where dose is matched to clinical indication); or iterative reconstruction. COMPARISON: CT Abdomen Pelvis wo Cont 01/01/2021 11:50 PM FINDINGS: Lungs: Mild atelectasis/infiltrate in the right lung base with 1.8 cm pleural base nodular density in the right lung base that could represent an narrowing of nodular scarring or possible lung nodule. Findings are similar to previous exam. Liver: Normal. No mass. Gallbladder and bile ducts: Status post cholecystectomy. Pancreas: Normal. No ductal dilation. Spleen: Normal. No splenomegaly. Adrenal glands: Moderate low-density left adrenal thickening again noted. Kidneys and ureters: Normal. No hydronephrosis. Stomach and bowel: Midline ventral hernia with nonobstructed bowel. Appendix: No evidence of appendicitis. Intraperitoneal space: Unremarkable. No free air. No significant fluid collection. Vasculature: Vascular calcifications are present. Lymph nodes: Unremarkable. No enlarged lymph nodes. Urinary bladder: Unremarkable as visualized. Reproductive: Unremarkable as visualized. Bones/joints: Sternotomy wires are present. Soft tissues: Unremarkable. IMPRESSION: 1. Mild atelectasis/infiltrate in the right lung base with 1.8 cm pleural base nodular density in the right lung base that could represent an narrowing of nodular scarring or possible lung nodule. Findings are similar to previous exam. 2. Midline ventral hernia with nonobstructed bowel. 3. No definite evidence of acute abdominal or pelvic pathology. Remainder of findings as described above.
--- NOTE | 2021-01-02 11:08 | PCM.HP ---
H&P History of Present Illness - General Date of Service: 01/02/21 Admit Problem/Dx: Gastroenteritis - History of Present Illness Initial Comments - Free Text/Narative: Rolf is an 85 year old man admitted early this morning with suspected ileus. He has a large umbilical hernia, and has been deemed a poor surgical candidate in the past. His brought him in for one episode of vomiting and fever. CT without contrast in the ED was read as showing small bowel obstruction involving that umbilical hernia. However, he has no clinical signs of SBO, hernia is easily reducible without pain, he is having no hematochezia. There is no bruising of his abdomen, normal bowel sounds in all four quadrants - Related Data Allergies/Adverse Reactions: Allergies Allergy/AdvReac Type Severity Reaction Status Date / Time caffeine AdvReac Anxiety Verified 01/01/21 22:38 Home Medications: Home Meds Aspirin [Ecotrin EC] 81 mg PO DAILY 11/15/13 [History] Calcium Carbonate [Tums] 500 mg PO DAILY PRN 11/15/13 [History] Cholecalciferol (Vitamin D3) [Vitamin D3] 1,000 unit PO DAILY 11/15/13 [History] Multivitamin [Multi-Vitamin Daily] 1 each PO DAILY 11/15/13 [History] Lisinopril 10 mg PO DAILY 03/13/15 [History] Pantoprazole [ProTONIX] 40 mg PO DAILY 03/13/15 [History] Donepezil [Aricept] 10 mg PO DAILY 01/09/17 [History] atorvaSTATin [Lipitor] 40 mg PO DAILY 01/09/17 [History] Divalproex Sodium [Depakote ER] 250 mg PO DAILY 07/28/20 [History] Memantine HCl [Namenda] 10 mg PO BID 07/28/20 [History] Sertraline [Zoloft] 100 mg PO DAILY 07/28/20 [History] traZODone HCl [Trazodone HCl] 50 mg PO BEDTIME 07/28/20 [History] Past Medical History HEENT History: Reports: Cataract, Impaired Vision, Other (See Below) Other HEENT History: Dentures Cardiovascular History: Reports: CAD, High Cholesterol Other Cardiovascular History: CEREBROVASCULAR DISEASE Respiratory History: Reports: None Gastrointestinal History: Reports: GERD, Other (See Below) Other Gastrointestinal History: ESOPHAGEAL MOTILITY DISORDER;. MULTIPLE ADENOMATOUS POLYPS. HX OF COLON CA REQUIRING RESECTION. INCISIONAL HERNIA Genitourinary History: Reports: Chronic Renal Insuffiency, Other (See Below) Other Genitourinary History: CHRONIC KIDNEY DISEASE (STAGE 3) Musculoskeletal History: Reports: Arthritis, Back Pain, Chronic, Fracture Other Musculoskeletal History: SCIATICA OF RIGHT SIDE; KNEE PAIN, ankle fracture Neurological History: Reports: Alzheimers Disease, TIA, Other (See Below) Other Neuro History: MEMORY IMPAIRMENT. CEREBROVASCULAR DISEASE Psychiatric History: Reports: Alzheimers Disease, Anxiety, Dementia, Depression, Mood Swings, Panic Attack Endocrine/Metabolic History: Reports: Other (See Below) Other Endocrine/Metabolic History: PRE-DIABETES Hematologic History: Reports: Other (See Below) Other Hematologic History: HYPERLIPIDEMIA Immunologic History: Reports: None Oncologic (Cancer) History: Reports: Colon, Other (See Below) Other Oncologic History: some kind of skin ca Dermatologic History: Reports: Eczema - Infectious Disease History Infectious Disease History: Reports: Chicken Pox, Measles - Past Surgical History Head Surgeries/Procedures: Reports: None HEENT Surgical History: Reports: Cataract Surgery, Oral Surgery Cardiovascular Surgical History: Reports: Coronary Artery Bypass, Other (See Below) Other Cardiovascular Surgeries/Procedures: CARDIAC CATH WITH STENT PLACEMENT. CABG X5 Respiratory Surgical History: Reports: None GI Surgical History: Reports: Colon, Colonoscopy, Hernia Repair/Other, Other (See Below) Other GI Surgeries/Procedures: "I'VE HAD PART OF MY COLON REMOVED DUE TO CANCEROUS POLYPS". S/P COLON CA SURGERY. HX OF COLONOIC ADENOMATOUS POLYPS Male Surgical History: Reports: None Endocrine Surgical History: Reports: None Neurological Surgical History: Reports: None Musculoskeletal Surgical History: Reports: None Oncologic Surgical History: Reports: None Dermatological Surgical History: Reports: None Social & Family History - Family History Family Medical History: Unobtainable - Tobacco Use Tobacco Use Status *Q: Former Tobacco User Used Tobacco, but Quit: Yes Month/Year Tobacco Last Used: quit when 35 yrs old - Caffeine Use Caffeine Use: Reports: None - Recreational Drug Use Recreational Drug Use: No - Living Situation & Occupation Living situation: Reports: with Spouse Occupation: Retired H&P Review of Systems - Review of Systems: Review Of Systems: See Below Review of Systems Comment:: He is unable to give any review of systems due to his advanced dementia. His does not report any other symptoms. Exam - Exam Exam: See Below - Vital Signs Vital Signs: Last Vital Signs Temp 97.3 F 01/02/21 08:00 Pulse 63 01/02/21 08:00 Resp 16 01/02/21 08:00 BP 118/70 01/02/21 08:00 Pulse Ox 93 L 01/02/21 08:00 Weight: 174 lb 1.6 oz - Exam General: Alert Neck: Supple Lungs: Clear to Auscultation Cardiovascular: Regular Rate, Regular Rhythm GI/Abdominal Exam: Normal Bowel Sounds, Soft, Non-Tender, No Distention - Patient Data Lab Results Last 24 hrs: Laboratory Results - last 24 hr 01/01/21 01/01/21 01/01/21 Range/Units 22:35 22:35 22:35 WBC 7.5 (5.0-10.0) 10^3/uL RBC 3.58 L (4.6-6.2) 10^6/uL Hgb 11.8 L D (14.0-18.0) g/dL Hct 36.2 L (40.0-54.0) % MCV 101.1 H (80-100) fL MCH 33.0 (27.0-34.0) pg MCHC 32.6 L (33.0-35.0) g/dL Plt Count 237 (150-450) 10^3/uL Neut % (Auto) 79.1 H (42.2-75.2) % Lymph % (Auto) 12.2 L (20.5-50.1) % [place] % (Auto) 8.1 H (2-8) % Eos % (Auto) 0.5 L (1.0-3.0) % Baso % (Auto) 0.1 (0.0-1.0) % Sodium 140 (136-145) mmol/L Potassium 4.2 (3.5-5.1) mmol/L Chloride 102 (98-107) mmol/L Carbon Dioxide 24 (21-32) mmol/L Anion Gap 18.2 H (7-13) mEq/L BUN 25 H (7-18) mg/dL Creatinine 1.46 H (0.70-1.30) mg/dL Est Cr Clr Drug Dosing 38.19 mL/min Estimated GFR (MDRD) 46 BUN/Creatinine Ratio 17.1 (No establ ref range) Glucose 135 H (70-99) mg/dL Lactic Acid 1.0 (0.4-2.0) mmol/L Calcium 8.3 L (8.5-10.1) mg/dL Total Bilirubin 0.5 (0.2-1.0) mg/dL AST 17 (15-37) U/L ALT 16 (16-63) U/L Alkaline Phosphatase 54 (46-116) U/L Total Protein 6.2 L (6.4-8.2) g/dL Albumin 2.8 L (3.4-5.0) g/dL Globulin 3.4 Albumin/Globulin Ratio 0.82 Influenza Type A RNA (NEGATIVE) Influenza Type B RNA (NEGATIVE) SARS-CoV-2 RNA (CRYS) (NEGATIVE) 01/02/21 Range/Units 00:44 WBC (5.0-10.0) 10^3/uL RBC (4.6-6.2) 10^6/uL Hgb (14.0-18.0) g/dL Hct (40.0-54.0) % MCV (80-100) fL MCH (27.0-34.0) pg MCHC (33.0-35.0) g/dL Plt Count (150-450) 10^3/uL Neut % (Auto) (42.2-75.2) % Lymph % (Auto) (20.5-50.1) % [place] % (Auto) (2-8) % Eos % (Auto) (1.0-3.0) % Baso % (Auto) (0.0-1.0) % Sodium (136-145) mmol/L Potassium (3.5-5.1) mmol/L Chloride (98-107) mmol/L Carbon Dioxide (21-32) mmol/L Anion Gap (7-13) mEq/L BUN (7-18) mg/dL Creatinine (0.70-1.30) mg/dL Est Cr Clr Drug Dosing mL/min Estimated GFR (MDRD) BUN/Creatinine Ratio (No establ ref range) Glucose (70-99) mg/dL Lactic Acid (0.4-2.0) mmol/L Calcium (8.5-10.1) mg/dL Total Bilirubin (0.2-1.0) mg/dL AST (15-37) U/L ALT (16-63) U/L Alkaline Phosphatase (46-116) U/L Total Protein (6.4-8.2) g/dL Albumin (3.4-5.0) g/dL Globulin Albumin/Globulin Ratio Influenza Type A RNA Negative (NEGATIVE) Influenza Type B RNA Negative (NEGATIVE) SARS-CoV-2 RNA (CRYS) Negative (NEGATIVE) Result Diagrams: 01/01/21 22:35 01/01/21 22:35 Isreal Results Last 24 hrs: Microbiology 01/01/21 22:35 Anaerobic Blood Culture - Final Blood - Arm, Left - Problem List (1) Ileus SNOMED Code(s): 597106521 ICD Code: K56.7 - ILEUS, UNSPECIFIED Status: Acute Current Visit: Yes Problem List Initiated/Reviewed/Updated: Yes Orders Last 24hrs: Active Orders 24 hr Category Date Time Status Admission Diagnosis [ADT] Urgent ADT 01/02/21 00:45 Ordered Admission Status [Patient Status] [ADT] Routine ADT 01/02/21 00:45 Active Ready for Discharge [RC] PER UNIT ROUTINE Care 01/02/21 10:59 Ordered Regular Diet [DIET] Diet 01/02/21 Lunch Ordered CULTURE BLOOD [BC] Stat Lab 01/01/21 22:35 Results Ondansetron [Zofran ODT] Med 01/02/21 02:04 Active 4 mg PO Q4H PRN Medication Orders Ondansetron HCl (Ondansetron 4 Mg Tab.Dis) 4 mg PO Q4H PRN PRN Reason: Nausea/Vomiting Assessment/Plan Comment:: Assessment: 1. 85 year old man with most likely viral gastroenteritis and an ileus associated with umbilical hernia Plan: He will be admitted under observation Repeat CT abd/pelvis in AM with oral contrast to clarify bowel findings. If no SBO as suspected, patient will be discharged home.
--- NOTE | 2021-01-02 11:11 | PCM.DCSUM1 ---
Discharge Summary - Hospital Course Free Text/Narrative:: Rolf was admitted for observation due to concern about possible SBO. He presented with gastroenteritis symptoms, and non-contrast CT was read as SBO. No other clinical symptoms of SBO. He did well overnight, and drank the oral contrast this morning without difficulty. CT abd/pelvis with oral contrast did not show any obstruction. - Discharge Data Discharge Date: 01/02/21 Discharge Disposition: Home, Self-Care 01 Condition: Good - Referral to Home Health Primary Care Physician: PCP None - Discharge Diagnosis/Problem(s) (1) Ileus SNOMED Code(s): 630324867 ICD Code: K56.7 - ILEUS, UNSPECIFIED Status: Acute Current Visit: Yes - Discharge Plan *PRESCRIPTION DRUG MONITORING PROGRAM REVIEWED*: Not Applicable *COPY OF PRESCRIPTION DRUG MONITORING REPORT IN PATIENT CODY: Not Applicable Home Medications: Home Meds Aspirin [Ecotrin EC] 81 mg PO DAILY 11/15/13 [History] Calcium Carbonate [Tums] 500 mg PO DAILY PRN 11/15/13 [History] Cholecalciferol (Vitamin D3) [Vitamin D3] 1,000 unit PO DAILY 11/15/13 [History] Multivitamin [Multi-Vitamin Daily] 1 each PO DAILY 11/15/13 [History] Lisinopril 10 mg PO DAILY 03/13/15 [History] Pantoprazole [ProTONIX] 40 mg PO DAILY 03/13/15 [History] Donepezil [Aricept] 10 mg PO DAILY 01/09/17 [History] atorvaSTATin [Lipitor] 40 mg PO DAILY 01/09/17 [History] Divalproex Sodium [Depakote ER] 250 mg PO DAILY 07/28/20 [History] Memantine HCl [Namenda] 10 mg PO BID 07/28/20 [History] Sertraline [Zoloft] 100 mg PO DAILY 07/28/20 [History] traZODone HCl [Trazodone HCl] 50 mg PO BEDTIME 07/28/20 [History] Patient Handouts: Intestinal Pseudo-Obstruction, Hernia, Adult, [id number] Referrals: Liz Umanzor NP [Ordering Only Provider] - - Discharge Summary/Plan Comment DC Time >30 min.: No Discharge Summary/Plan Comment: Discharge Diagnosis: Mild ileus secondary to viral gastroenteritis Discharge plan: He is discharged home, will follow up with his primary care provider as needed - Patient Data Vitals - Most Recent: Last Vital Signs Temp 97.3 F 01/02/21 08:00 Pulse 63 01/02/21 08:00 Resp 16 01/02/21 08:00 BP 118/70 01/02/21 08:00 Pulse Ox 93 L 01/02/21 08:00 Weight - Most Recent: 174 lb 1.6 oz Lab Results - Last 24 hrs: Laboratory Results - last 24 hr 01/01/21 01/01/21 01/01/21 Range/Units 22:35 22:35 22:35 WBC 7.5 (5.0-10.0) 10^3/uL RBC 3.58 L (4.6-6.2) 10^6/uL Hgb 11.8 L D (14.0-18.0) g/dL Hct 36.2 L (40.0-54.0) % MCV 101.1 H (80-100) fL MCH 33.0 (27.0-34.0) pg MCHC 32.6 L (33.0-35.0) g/dL Plt Count 237 (150-450) 10^3/uL Neut % (Auto) 79.1 H (42.2-75.2) % Lymph % (Auto) 12.2 L (20.5-50.1) % [place] % (Auto) 8.1 H (2-8) % Eos % (Auto) 0.5 L (1.0-3.0) % Baso % (Auto) 0.1 (0.0-1.0) % Sodium 140 (136-145) mmol/L Potassium 4.2 (3.5-5.1) mmol/L Chloride 102 (98-107) mmol/L Carbon Dioxide 24 (21-32) mmol/L Anion Gap 18.2 H (7-13) mEq/L BUN 25 H (7-18) mg/dL Creatinine 1.46 H (0.70-1.30) mg/dL Est Cr Clr Drug Dosing 38.19 mL/min Estimated GFR (MDRD) 46 BUN/Creatinine Ratio 17.1 (No establ ref range) Glucose 135 H (70-99) mg/dL Lactic Acid 1.0 (0.4-2.0) mmol/L Calcium 8.3 L (8.5-10.1) mg/dL Total Bilirubin 0.5 (0.2-1.0) mg/dL AST 17 (15-37) U/L ALT 16 (16-63) U/L Alkaline Phosphatase 54 (46-116) U/L Total Protein 6.2 L (6.4-8.2) g/dL Albumin 2.8 L (3.4-5.0) g/dL Globulin 3.4 Albumin/Globulin Ratio 0.82 Influenza Type A RNA (NEGATIVE) Influenza Type B RNA (NEGATIVE) SARS-CoV-2 RNA (CRYS) (NEGATIVE) 01/02/21 Range/Units 00:44 WBC (5.0-10.0) 10^3/uL RBC (4.6-6.2) 10^6/uL Hgb (14.0-18.0) g/dL Hct (40.0-54.0) % MCV (80-100) fL MCH (27.0-34.0) pg MCHC (33.0-35.0) g/dL Plt Count (150-450) 10^3/uL Neut % (Auto) (42.2-75.2) % Lymph % (Auto) (20.5-50.1) % [place] % (Auto) (2-8) % Eos % (Auto) (1.0-3.0) % Baso % (Auto) (0.0-1.0) % Sodium (136-145) mmol/L Potassium (3.5-5.1) mmol/L Chloride (98-107) mmol/L Carbon Dioxide (21-32) mmol/L Anion Gap (7-13) mEq/L BUN (7-18) mg/dL Creatinine (0.70-1.30) mg/dL Est Cr Clr Drug Dosing mL/min Estimated GFR (MDRD) BUN/Creatinine Ratio (No establ ref range) Glucose (70-99) mg/dL Lactic Acid (0.4-2.0) mmol/L Calcium (8.5-10.1) mg/dL Total Bilirubin (0.2-1.0) mg/dL AST (15-37) U/L ALT (16-63) U/L Alkaline Phosphatase (46-116) U/L Total Protein (6.4-8.2) g/dL Albumin (3.4-5.0) g/dL Globulin Albumin/Globulin Ratio Influenza Type A RNA Negative (NEGATIVE) Influenza Type B RNA Negative (NEGATIVE) SARS-CoV-2 RNA (CRYS) Negative (NEGATIVE) VANDANA Results - Last 24 hrs: Microbiology 01/01/21 22:35 Anaerobic Blood Culture - Final Blood - Arm, Left Med Orders - Current: Current Medications Ondansetron HCl (Ondansetron 4 Mg Tab.Dis) 4 mg PO Q4H PRN PRN Reason: Nausea/Vomiting Discontinued Medications Barium Sulfate (Barium Sulfate W/V 2.1% Oral Susp 450 Ml Bottle) 900 ml PO ONETIME ONE Stop: 01/02/21 07:37 Last Admin: 01/02/21 07:30 Dose: 900 ml Documented by: Ondansetron HCl (Ondansetron 4 Mg/2 Ml Sdv) 4 mg IVPUSH ONETIME ONE Stop: 01/01/21 22:28 Last Admin: 01/01/21 22:44 Dose: 4 mg Documented by:
[2021-01-02 11:59] VITALS: BP 93/64; PULSE 94
== END 2021-01-02 13:30 | disposition home or self-care (01) ==
LOC: DL.ED 00:49 → DL.MS 00:50
PROVIDERS: ADMIT Family Medicine; ATTEND Family Medicine
DX: K56.7 Ileus, unspecified (principal); A08.4 Viral intestinal infection, unspecified; K42.9 Umbilical hernia without obstruction or gangrene; K56.609 Unspecified intestinal obstruction, unspecified as to partial versus complete obstruction; I25.10 Atherosclerotic heart disease of native coronary artery without angina pectoris; I12.9 Hypertensive chronic kidney disease with stage 1 through stage 4 chronic kidney disease, or unspecified chronic kidney disease; N18.30 Chronic kidney disease, stage 3 unspecified; E78.5 Hyperlipidemia, unspecified; R73.03 Prediabetes; K43.9 Ventral hernia without obstruction or gangrene; R91.8 Other nonspecific abnormal finding of lung field; Z20.822 Contact with and (suspected) exposure to COVID-19; Z91.048 Other nonmedicinal substance allergy status; Z79.82 Long term (current) use of aspirin; Z86.73 Personal history of transient ischemic attack (TIA), and cerebral infarction without residual deficits; Z95.1 Presence of aortocoronary bypass graft; Z85.038 Personal history of other malignant neoplasm of large intestine; Z86.010 Personal history of colon polyps
CPT/HCPCS: 0240U; 36415; 74176; 80053; 83605; 85025; 87040; 99284; J2405; 96374; 99285-25

== ENCOUNTER 2021-02-27 17:19 | Inpatient (IN) | payer OTHER, MEDICARE ==
[2021-02-27 18:00] LABS: ANION GAP 15.3 mEq/L (7-13)
--- NOTE | 2021-02-27 18:02 | EDM.PDOC ---
<Jannette Moe - Last Filed: 02/28/21 02:14> ED HPI GENERAL MEDICAL PROBLEM - General Chief Complaint: Abdominal Pain Stated Complaint: AMBULANCE Time Seen by Provider: 02/27/21 17:54 - Related Data Allergies Allergy/AdvReac Type Severity Reaction Status Date / Time caffeine AdvReac Anxiety Verified 01/01/21 22:38 Home Meds: Home Meds Aspirin [Ecotrin EC] 81 mg PO DAILY 11/15/13 [History] Calcium Carbonate [Tums] 500 mg PO DAILY PRN 11/15/13 [History] Cholecalciferol (Vitamin D3) [Vitamin D3] 1,000 unit PO DAILY 11/15/13 [History] Multivitamin [Multi-Vitamin Daily] 1 each PO DAILY 11/15/13 [History] Lisinopril 10 mg PO DAILY 03/13/15 [History] Pantoprazole [ProTONIX] 40 mg PO DAILY 03/13/15 [History] Donepezil [Aricept] 10 mg PO DAILY 01/09/17 [History] atorvaSTATin [Lipitor] 40 mg PO DAILY 01/09/17 [History] Divalproex Sodium [Depakote ER] 250 mg PO DAILY 07/28/20 [History] Memantine HCl [Namenda] 10 mg PO BID 07/28/20 [History] Sertraline [Zoloft] 100 mg PO DAILY 07/28/20 [History] traZODone HCl [Trazodone HCl] 50 mg PO BEDTIME 07/28/20 [History] Course - Re-Assessments/Exams Free Text/Narrative Re-Assessment/Exam: 02/27/21 20:38 Soft BM x 2, agitated, resting with Ativan. [facility] Departure - Departure Time of Disposition: 21:30 Disposition: Admitted As Inpatient 66 Condition: Good Clinical Impression: Fecal impaction Abdominal pain Qualifiers: Abdominal location: generalized Qualified Code(s): R10.84 - Generalized abdominal pain Alzheimer's dementia Qualifiers: Alzheimer's disease onset: unspecified onset Dementia behavioral disturbance: with behavioral disturbance Qualified Code(s): G30.9 - Alzheimer's disease, unspecified - Discharge Information <Tatyana Cruz - Last Filed: 02/28/21 13:04> ED HPI GENERAL MEDICAL PROBLEM - General Source of Information: Reports: Patient, Family (), RN, RN Notes Reviewed History Limitations: Reports: Other (Advanced Alzheimers) - History of Present Illness INITIAL COMMENTS - FREE TEXT/NARRATIVE: Rolf is an 85 y/o male with a history of advanced Alzheimer's, s/p bowel resection for colon cancer, and umbilical hernia who presents to the ED via [facility] for constipation. Per EMS report, the patient has not had a bowel movement in seven days and today has had a decreased appetite. The arrived shortly after the patient. She confirms he has not had a BM in seven days. She attempted an enema today but he was noncompliant with administration, so not much was administered. She states his last meal was this morning and was only a few bites of eggs and toast. Additionally, he experienced several bouts of emesis yesterday and stopped taking his oral medications about seven days ago. She denies fever or shaking chills. She reports the patient has had an umbilical hernia since his bowel resection for colon cancer 20 years ago. Past Medical History HEENT History: Reports: Cataract, Impaired Vision, Other (See Below) Other HEENT History: Dentures Cardiovascular History: Reports: CAD, High Cholesterol Other Cardiovascular History: CEREBROVASCULAR DISEASE Respiratory History: Reports: None Gastrointestinal History: Reports: GERD, Other (See Below) Other Gastrointestinal History: ESOPHAGEAL MOTILITY DISORDER;. MULTIPLE ADENOMATOUS POLYPS. HX OF COLON CA REQUIRING RESECTION. INCISIONAL HERNIA Genitourinary History: Reports: Chronic Renal Insuffiency, Other (See Below) Other Genitourinary History: CHRONIC KIDNEY DISEASE (STAGE 3) Musculoskeletal History: Reports: Arthritis, Back Pain, Chronic, Fracture Other Musculoskeletal History: SCIATICA OF RIGHT SIDE; KNEE PAIN, ankle fracture Neurological History: Reports: Alzheimers Disease, TIA, Other (See Below) Other Neuro History: MEMORY IMPAIRMENT. CEREBROVASCULAR DISEASE Psychiatric History: Reports: Alzheimers Disease, Anxiety, Dementia, Depression, Mood Swings, Panic Attack Endocrine/Metabolic History: Reports: Other (See Below) Other Endocrine/Metabolic History: PRE-DIABETES Hematologic History: Reports: Other (See Below) Other Hematologic History: HYPERLIPIDEMIA Immunologic History: Reports: None Oncologic (Cancer) History: Reports: Colon, Other (See Below) Other Oncologic History: some kind of skin ca Dermatologic History: Reports: Eczema - Infectious Disease History Infectious Disease History: Reports: Chicken Pox, Measles - Past Surgical History Head Surgeries/Procedures: Reports: None HEENT Surgical History: Reports: Cataract Surgery, Oral Surgery Cardiovascular Surgical History: Reports: Coronary Artery Bypass, Other (See Below) Other Cardiovascular Surgeries/Procedures: CARDIAC CATH WITH STENT PLACEMENT. CABG X5 Respiratory Surgical History: Reports: None GI Surgical History: Reports: Colon, Colonoscopy, Hernia Repair/Other, Other (See Below) Other GI Surgeries/Procedures: "I'VE HAD PART OF MY COLON REMOVED DUE TO CANCEROUS POLYPS". S/P COLON CA SURGERY. HX OF COLONOIC ADENOMATOUS POLYPS Male Surgical History: Reports: None Endocrine Surgical History: Reports: None Neurological Surgical History: Reports: None Musculoskeletal Surgical History: Reports: None Oncologic Surgical History: Reports: None Dermatological Surgical History: Reports: None Social & Family History - Family History Family Medical History: Unobtainable - Tobacco Use Tobacco Use Status *Q: Unknown Ever Used Tobacco - Caffeine Use Caffeine Use: Reports: None - Recreational Drug Use Recreational Drug Use: No - Living Situation & Occupation Living situation: Reports: with Spouse Occupation: Retired ED ROS GENERAL - Review of Systems Review Of Systems: Comprehensive ROS is negative, except as noted in HPI. ED EXAM, GI/ABD - Physical Exam Exam: See Below Exam Limited By: Other (Hx of advanced Alzheimers) General Appearance: Alert, No Apparent Distress, Thin. No: Active Emesis Eyes: Bilateral: Normal Appearance, EOMI Ears: Normal External Exam, Hearing Grossly Normal Nose: Normal Inspection, Nasal Swelling Throat/Mouth: Normal Lips (Cracked, dry), Normal Teeth, Normal Gums, Normal Voice, No Airway Compromise, Perioral Cyanosis. No: Normal Oropharynx (Dry mucous membranes) Head: Atraumatic Respiratory/Chest: No Respiratory Distress, Lungs Clear, Normal Breath Sounds, No Accessory Muscle Use, Chest Non-Tender Cardiovascular: Normal Peripheral Pulses, Regular Rate, Rhythm, No Edema, No Gallop, No JVD, No Murmur, No Rub GI/Abdominal Exam: Distended, Guarding, Rebound, Tender (Diffuse), Abnormal Bowel Sounds (No bowel sounds to right; Hyperactive to left), Hernia (Large, umbilical). No: Rigid Back Exam: Normal Inspection, Full Range of Motion Extremities: Normal Inspection, Normal Range of Motion, Non-Tender, No Pedal Edema, Normal Capillary Refill Neurological: Alert, Memory Loss Remote Events, Memory Loss Recent Events, Other (Hx of Alzheimer disease) Psychiatric: Normal Affect, Normal Mood Skin Exam: Warm, Dry, Intact, Normal Color, No Rash. No: Cyanosis, Erythema, Jaundice, Mottled, Pallor, Petechiae Course - Vital Signs Last Recorded V/S: Last Vital Signs Temp 97.1 F 02/28/21 11:52 Pulse 82 02/28/21 11:52 Resp 16 02/28/21 11:52 BP 98/51 L 02/28/21 11:52 Pulse Ox 91 L 02/28/21 11:52 - Orders/Labs/Meds Orders: Active Orders 24 hr Category Date Time Status Admission Diagnosis [ADT] Stat ADT 02/27/21 21:13 Ordered Admission Status [Patient Status] [ADT] Routine ADT 02/27/21 21:14 Active CULTURE BLOOD [BC] Stat Lab 02/27/21 20:05 Received Medication Orders Acetaminophen (Acetaminophen 325 Mg Tab) 650 mg PO Q4H PRN PRN Reason: Pain (Mild 1-3)/fever Aspirin (Aspirin 81 Mg Tab.Ec) 81 mg PO DAILY [facility] Last Admin: 02/28/21 10:09 Dose: 81 mg Documented by: MITCHEL Atorvastatin Calcium (Atorvastatin 20 Mg Tab) 40 mg PO DAILY [facility] Last Admin: 02/28/21 10:10 Dose: 40 mg Documented by: MITCHEL Ceftriaxone Sodium (Ceftriaxone 1 Gm Vial) 1 gm IVPUSH Q24H [facility] Last Admin: 02/27/21 22:24 Dose: 1 gm Documented by: ARPITA Divalproex Sodium (Divalproex Sodium 250 Mg Tab.Er) 250 mg PO DAILY [facility] Last Admin: 02/28/21 10:09 Dose: 250 mg Documented by: MITCHEL Donepezil HCl (Donepezil 10 Mg Tab) 10 mg PO DAILY [facility] Last Admin: 02/28/21 10:09 Dose: 10 mg Documented by: MITCHEL Folic Acid (Folic Acid 1 Mg Tab) 1 mg PO DAILY [facility] Last Admin: 02/28/21 10:09 Dose: 1 mg Documented by: MITCHEL Heparin Sodium (Porcine) (Heparin Sodium 5,000 Units/Ml Vial) 5,000 units SUBCUT Q12HR [facility] Last Admin: 02/28/21 10:10 Dose: 5,000 units Documented by: MITCHEL Sodium Chloride (Sodium Chloride 0.45%) 1,000 mls @ 75 mls/hr IV ASDIRECTED [facility] Last Admin: 02/27/21 22:26 Dose: 75 mls/hr Documented by: ARPITA Azithromycin 500 mg/ Sodium (Chloride) 250 mls @ 250 mls/hr IV Q24H [facility] Last Admin: 02/27/21 22:24 Dose: 250 mls/hr Documented by: ARPITA Memantine (Memantine 10 Mg Tab) 10 mg PO BID [facility] Last Admin: 02/28/21 10:09 Dose: 10 mg Documented by: MITCHEL Morphine Sulfate (Morphine 2 Mg/Ml Syringe) 1 mg IVPUSH Q4H PRN PRN Reason: Pain Last Admin: 02/28/21 10:10 Dose: 1 mg Documented by: Admin: 02/28/21 02:57 Dose: 1 mg Documented by: ARPITA Ondansetron HCl (Ondansetron 4 Mg/2 Ml Sdv) 4 mg IVPUSH Q4H PRN PRN Reason: Nausea/Vomiting Pantoprazole Sodium (Pantoprazole 40 Mg Tab.Cr) 40 mg PO ACBREAKFAST [facility] Last Admin: 02/28/21 06:22 Dose: 40 mg Documented by: ARPITA Senna/Docusate Sodium (Docusate Sodium/Sennosides 50-8.6 Mg Tab) 2 tab PO BID [facility] Last Admin: 02/28/21 10:09 Dose: 2 tab Documented by: MITCHEL Sertraline HCl (Sertraline 50 Mg Tab) 100 mg PO DAILY [facility] Last Admin: 02/28/21 10:08 Dose: 100 mg Documented by: MITCHEL Sodium Chloride (Sodium Chloride 0.9% 10 Ml Syringe) 10 ml FLUSH ASDIRECTED PRN PRN Reason: Keep Vein Open Trazodone HCl (Trazodone 50 Mg Tab) 50 mg PO BEDTIME [facility] Labs: Laboratory Tests 02/27/21 02/27/21 02/27/21 Range/Units 17:21 17:32 17:32 WBC 14.1 H (5.0-10.0) 10^3/uL RBC 3.97 L (4.6-6.2) 10^6/uL Hgb 12.8 L (14.0-18.0) g/dL Hct 39.7 L (40.0-54.0) % MCV 100.0 (80-100) fL MCH 32.2 (27.0-34.0) pg MCHC 32.2 L (33.0-35.0) g/dL Plt Count 375 D (150-450) 10^3/uL Neut % (Auto) 85.8 H (42.2-75.2) % Lymph % (Auto) 7.5 L (20.5-50.1) % Morrison % (Auto) 6.6 (2-8) % Eos % (Auto) 0.0 L (1.0-3.0) % Baso % (Auto) 0.1 (0.0-1.0) % Sodium 148 H (136-145) mmol/L Potassium 3.3 L (3.5-5.1) mmol/L Chloride 104 (98-107) mmol/L Carbon Dioxide 32 (21-32) mmol/L Anion Gap 15.3 H (7-13) mEq/L BUN 52 H D (7-18) mg/dL Creatinine 2.98 H D (0.70-1.30) mg/dL Est Cr Clr Drug Dosing 18.12 mL/min Estimated GFR (MDRD) 20 BUN/Creatinine Ratio 17.4 (No establ ref range) Glucose 171 H (70-99) mg/dL Calcium 9.7 (8.5-10.1) mg/dL Iron (65-175) ug/dL TIBC (250-450) ug/dL % Saturation (20.0-50.0) % Ferritin (26-388) mg/mL Total Bilirubin 0.5 (0.2-1.0) mg/dL AST 14 L (15-37) U/L ALT 18 (16-63) U/L Alkaline Phosphatase 80 (46-116) U/L Total Protein 7.1 (6.4-8.2) g/dL Albumin 2.8 L (3.4-5.0) g/dL Globulin 4.3 Albumin/Globulin Ratio 0.65 SARS-CoV-2 RNA (CRYS) Negative (NEGATIVE) 02/27/21 Range/Units 20:05 WBC (5.0-10.0) 10^3/uL RBC (4.6-6.2) 10^6/uL Hgb (14.0-18.0) g/dL Hct (40.0-54.0) % MCV (80-100) fL MCH (27.0-34.0) pg MCHC (33.0-35.0) g/dL Plt Count (150-450) 10^3/uL Neut % (Auto) (42.2-75.2) % Lymph % (Auto) (20.5-50.1) % Morrison % (Auto) (2-8) % Eos % (Auto) (1.0-3.0) % Baso % (Auto) (0.0-1.0) % Sodium (136-145) mmol/L Potassium (3.5-5.1) mmol/L Chloride (98-107) mmol/L Carbon Dioxide (21-32) mmol/L Anion Gap (7-13) mEq/L BUN (7-18) mg/dL Creatinine (0.70-1.30) mg/dL Est Cr Clr Drug Dosing mL/min Estimated GFR (MDRD) BUN/Creatinine Ratio (No establ ref range) Glucose (70-99) mg/dL Calcium (8.5-10.1) mg/dL Iron 16 L (65-175) ug/dL TIBC 202 L (250-450) ug/dL % Saturation 7.9 L (20.0-50.0) % Ferritin 920 H (26-388) mg/mL Total Bilirubin (0.2-1.0) mg/dL AST (15-37) U/L ALT (16-63) U/L Alkaline Phosphatase (46-116) U/L Total Protein (6.4-8.2) g/dL Albumin (3.4-5.0) g/dL Globulin Albumin/Globulin Ratio SARS-CoV-2 RNA (CRYS) (NEGATIVE) Meds: Medications Generic Name Dose Route Start Last Admin Trade Name Freq PRN Reason Stop Dose Admin Acetaminophen 650 mg 02/27/21 21:44 Acetaminophen 325 Mg Tab PO Q4H PRN Pain (Mild 1-3)/fever Aspirin 81 mg 02/28/21 09:00 02/28/21 10:09 Aspirin 81 Mg Tab.Ec PO 81 mg DAILY MONIQUE Administration Atorvastatin Calcium 40 mg 02/28/21 09:00 02/28/21 10:10 Atorvastatin 20 Mg Tab PO 40 mg DAILY MONIQUE Administration Ceftriaxone Sodium 1 gm 02/27/21 22:00 02/27/21 22:24 Ceftriaxone 1 Gm Vial IVPUSH 1 gm Q24H MONIQUE Administration Divalproex Sodium 250 mg 02/28/21 09:00 02/28/21 10:09 Divalproex Sodium 250 Mg Tab.Er PO 250 mg DAILY MONIQUE Administration Donepezil HCl 10 mg 02/28/21 09:00 02/28/21 10:09 Donepezil 10 Mg Tab PO 10 mg DAILY MONIQUE Administration Folic Acid 1 mg 02/28/21 09:30 02/28/21 10:09 Folic Acid 1 Mg Tab PO 1 mg DAILY [facility]IQUE Administration Heparin Sodium (Porcine) 5,000 units 02/28/21 09:00 02/28/21 10:10 Heparin Sodium 5,000 Units/Ml Vial SUBCUT 5,000 units Q12HR MONIQUE Administration Sodium Chloride 1,000 mls @ 75 mls/hr 02/27/21 22:00 02/27/21 22:26 Sodium Chloride 0.45% IV 75 mls/hr ASDIRECTED MONIQUE Administration Azithromycin 500 mg/ Sodium 250 mls @ 250 mls/hr 02/27/21 22:00 02/27/21 22:24 Chloride IV 250 mls/hr Q24H MONIQUE Administration Memantine 10 mg 02/28/21 09:00 02/28/21 10:09 Memantine 10 Mg Tab PO 10 mg BID MONIQUE Administration Morphine Sulfate 1 mg 02/27/21 22:01 02/28/21 10:10 Morphine 2 Mg/Ml Syringe IVPUSH 1 mg Q4H PRN Administration Pain Ondansetron HCl 4 mg 02/27/21 21:44 Ondansetron 4 Mg/2 Ml Sdv IVPUSH Q4H PRN Nausea/Vomiting Pantoprazole Sodium 40 mg 02/28/21 06:00 02/28/21 06:22 Pantoprazole 40 Mg Tab.Cr PO 40 mg ACBREAKFAST MONIQUE Administration Senna/Docusate Sodium 2 tab 02/28/21 09:30 02/28/21 10:09 Docusate Sodium/Sennosides 50-8.6 Mg Tab PO 2 tab BID MONIQUE Administration Sertraline HCl 100 mg 02/28/21 09:00 02/28/21 10:08 Sertraline 50 Mg Tab PO 100 mg DAILY MONIQUE Administration Sodium Chloride 10 ml 02/27/21 21:44 Sodium Chloride 0.9% 10 Ml Syringe FLUSH ASDIRECTED PRN Keep Vein Open Trazodone HCl 50 mg 02/28/21 21:00 Trazodone 50 Mg Tab PO BEDTIME MONIQUE Discontinued Medications Generic Name Dose Route Start Last Admin Trade Name Freq PRN Reason Stop Dose Admin Docusate Sodium/Benzocaine 1 each 02/27/21 22:00 02/27/21 22:23 Benzocaine/Docusate Sodium 20-283 Mg/5 Ml Enema RECTAL 1 each Q4H MONIQUE Administration Docusate Sodium/Benzocaine 1 each 02/28/21 02:00 02/28/21 07:20 Benzocaine/Docusate Sodium 20-283 Mg/5 Ml Enema RECTAL 02/28/21 06:01 Not Given Q4H MONIQUE Piperacillin Sod/Tazobactam 100 mls @ 200 mls/hr 02/27/21 19:57 02/27/21 20:24 Sod 3.375 gm/ Sodium Chloride IV 02/27/21 20:26 200 mls/hr ONETIME ONE Administration Sterile Water Confirm 02/27/21 22:13 02/27/21 22:30 Sterile Water For Injection Administered 02/27/21 22:14 Not Given Dose 20 mls @ as directed .ROUTE .STK-MED ONE Potassium Chloride 20 meq/ 100 mls @ 50 mls/hr 02/28/21 00:00 02/28/21 02:57 Premix IV 02/28/21 03:59 50 mls/hr Q2H MONIQUE Administration Lorazepam 1 mg 02/27/21 19:41 02/27/21 19:54 Lorazepam 2 Mg/Ml Sdv IVPUSH 02/27/21 19:42 1 mg ONETIME ONE Administration - Re-Assessments/Exams Free Text/Narrative Re-Assessment/Exam: 02/27/21 CT abdomen obtained. Will keep EMS bolus going while labs pending. Care of patient transferred to Rosie Moe PA-C at 1900. Sepsis Event Note (ED) - Evaluation Sepsis Screening Result: No Definite Risk
[2021-02-27] MEDS ORDERED: LORazepam 2 MG/ML SDV IVPUSH ONE (19:41)
--- NOTE | 2021-02-27 19:41 | CT ---
PROCEDURE INFORMATION: Exam: CT Abdomen And Pelvis Without Contrast Exam date and time: 02/27/2021 6:25 PM Age: 85 years old Clinical indication: Other: HX umbilical hernia follow bowel rection for colon CA 20 years ago; Prior surgery; Surgery date: 6+ months; Patient HX: Wbc 14,100, creat high; Additional info: No bm x7 days; Vomiting TECHNIQUE: Imaging protocol: Computed tomography of the abdomen and pelvis without contrast. Radiation optimization: All CT scans at this facility use at least one of these dose optimization techniques: automated exposure control; mA and/or kV adjustment per patient size (includes targeted exams where dose is matched to clinical indication); or iterative reconstruction. COMPARISON: CT Abdomen Pelvis wo Cont 01/02/2021 9:31 AM FINDINGS: Lungs: Patchy bilateral lower lobe consolidations. Air-filled cavity anterior right upper lobe with peripheral airspace density. Liver: Normal. No mass. Gallbladder and bile ducts: Cholecystectomy. No ductal dilation. Pancreas: Normal. No ductal dilation. Spleen: Normal. No splenomegaly. Adrenal glands: Prominent bilateral adrenal glands. No mass. Kidneys and ureters: Bilateral renal atrophy. Left lower pole 4 mm nonobstructing nephrolith. Stomach and bowel: Dilated small bowel up to 5cm with fluid levels. There are 2 [id number] midline ventral abdominal wall hernias measuring up to 4.5 cm both with dilated loops of small bowel resulting in components of high-grade small bowel obstruction. No inflammatory changes to suggest incarceration. Right hemicolectomy. Significant dilatation left colon and rectosigmoid measuring up to 14 cm with impacted stool. Significant dilatation originates at the ileocolic suture line. No evidence of visualized mass. Appendix: Surgically resected. Intraperitoneal space: Unremarkable. No free air. No significant fluid collection. Vasculature: Aortoiliac moderate atherosclerotic calcification. No evidence of aneurysm. Lymph nodes: Unremarkable. No enlarged lymph nodes. Urinary bladder: Unremarkable as visualized. Reproductive: Unremarkable as visualized. Bones/joints: Multilevel spondyloarthropathy. No acute fracture. Soft tissues: Unremarkable. IMPRESSION: 1. Small and large bowel obstruction. Small bowel obstruction secondary to 2 midline contiguous abdominal ventral hernias both with dilated prolapsing bowel. 2. Large bowel obstruction up to 14 cm with advanced stool impaction of the remaining left colon. Differential includes obstruction secondary to stool impaction and adynamic ileus. Additionally, cannot exclude adhesions at the left ileocolic anastomotic site (no definite stenosis or twisted mesentery visualized). 3. Patchy posterior bilateral lower lobe infiltrates compatible with pneumonitis. Small air-filled cavity with ill-defined airspace changes anterior right upper lobe.
[2021-02-27] MEDS ORDERED: Piperacillin/Tazobactam 3.375 GM in Sodium Chloride 0.9% 100 ML IV ONE (19:57)
[2021-02-27] MEDS ORDERED: Sodium Chloride 0.9% 10 ML Syringe FLUSH PRN (21:44)
[2021-02-27] MEDS ORDERED: Acetaminophen 325 MG Tab PO PRN (21:44)
[2021-02-27] MEDS ORDERED: Ondansetron 4 MG/2 ML SDV IVPUSH PRN (21:44)
--- NOTE | 2021-02-27 21:56 | PCM.HP ---
H&P History of Present Illness - General Date of Service: 02/27/21 Admit Problem/Dx: Admission Diagnosis/Problem Admission Diagnosis/Problem Fecal impaction of colon Source of Information: Family - History of Present Illness Initial Comments - Free Text/Narative: The patient is an 85-year-old male who transferred to the emergency department by his because he apparently has not had a bowel movement since approximately February. On this day of hospitalization, the patient verbalized abdominal pain and has been grimacing. Unfortunately the patient has what appears to be at least advanced dementia and is unable to provide history of present illness. He presents for further evaluation - Related Data Allergies/Adverse Reactions: Allergies Allergy/AdvReac Type Severity Reaction Status Date / Time caffeine AdvReac Anxiety Verified 01/01/21 22:38 Home Medications: Home Meds Aspirin [Ecotrin EC] 81 mg PO DAILY 11/15/13 [History] Calcium Carbonate [Tums] 500 mg PO DAILY PRN 11/15/13 [History] Cholecalciferol (Vitamin D3) [Vitamin D3] 1,000 unit PO DAILY 11/15/13 [History] Multivitamin [Multi-Vitamin Daily] 1 each PO DAILY 11/15/13 [History] Lisinopril 10 mg PO DAILY 03/13/15 [History] Pantoprazole [ProTONIX] 40 mg PO DAILY 03/13/15 [History] Donepezil [Aricept] 10 mg PO DAILY 01/09/17 [History] atorvaSTATin [Lipitor] 40 mg PO DAILY 01/09/17 [History] Divalproex Sodium [Depakote ER] 250 mg PO DAILY 07/28/20 [History] Memantine HCl [Namenda] 10 mg PO BID 07/28/20 [History] Sertraline [Zoloft] 100 mg PO DAILY 07/28/20 [History] traZODone HCl [Trazodone HCl] 50 mg PO BEDTIME 07/28/20 [History] Past Medical History HEENT History: Reports: Cataract, Impaired Vision, Other (See Below) Other HEENT History: Dentures Cardiovascular History: Reports: CAD, High Cholesterol Other Cardiovascular History: CEREBROVASCULAR DISEASE Respiratory History: Reports: None Gastrointestinal History: Reports: GERD, Other (See Below) Other Gastrointestinal History: ESOPHAGEAL MOTILITY DISORDER;. MULTIPLE ADENOMATOUS POLYPS. HX OF COLON CA REQUIRING RESECTION. INCISIONAL HERNIA Genitourinary History: Reports: Chronic Renal Insuffiency, Other (See Below) Other Genitourinary History: CHRONIC KIDNEY DISEASE (STAGE 3) Musculoskeletal History: Reports: Arthritis, Back Pain, Chronic, Fracture Other Musculoskeletal History: SCIATICA OF RIGHT SIDE; KNEE PAIN, ankle fracture Neurological History: Reports: Alzheimers Disease, TIA, Other (See Below) Other Neuro History: MEMORY IMPAIRMENT. CEREBROVASCULAR DISEASE Psychiatric History: Reports: Alzheimers Disease, Anxiety, Dementia, Depression, Mood Swings, Panic Attack Endocrine/Metabolic History: Reports: Other (See Below) Other Endocrine/Metabolic History: PRE-DIABETES Hematologic History: Reports: Other (See Below) Other Hematologic History: HYPERLIPIDEMIA Immunologic History: Reports: None Oncologic (Cancer) History: Reports: Colon, Other (See Below) Other Oncologic History: some kind of skin ca Dermatologic History: Reports: Eczema - Infectious Disease History Infectious Disease History: Reports: Chicken Pox, Measles - Past Surgical History Head Surgeries/Procedures: Reports: None HEENT Surgical History: Reports: Cataract Surgery, Oral Surgery Cardiovascular Surgical History: Reports: Coronary Artery Bypass, Other (See Below) Other Cardiovascular Surgeries/Procedures: CARDIAC CATH WITH STENT PLACEMENT. CABG X5 Respiratory Surgical History: Reports: None GI Surgical History: Reports: Colon, Colonoscopy, Hernia Repair/Other, Other (See Below) Other GI Surgeries/Procedures: "I'VE HAD PART OF MY COLON REMOVED DUE TO CANCEROUS POLYPS". S/P COLON CA SURGERY. HX OF COLONOIC ADENOMATOUS POLYPS Male Surgical History: Reports: None Endocrine Surgical History: Reports: None Neurological Surgical History: Reports: None Musculoskeletal Surgical History: Reports: None Oncologic Surgical History: Reports: None Dermatological Surgical History: Reports: None Social & Family History - Family History Family Medical History: Unobtainable - Tobacco Use Tobacco Use Status *Q: Unknown Ever Used Tobacco - Caffeine Use Caffeine Use: Reports: None - Recreational Drug Use Recreational Drug Use: No - Living Situation & Occupation Living situation: Reports: with Spouse Occupation: Retired H&P Review of Systems - Review of Systems: Review Of Systems: Unable To Obtain Reason Not Obtained: Patient has advanced dementia Exam - Exam Exam: See Below - Vital Signs Vital Signs: Last Vital Signs Temp 97.9 F 02/27/21 20:00 Pulse 92 02/27/21 20:00 Resp 14 02/27/21 20:00 BP 126/69 02/27/21 20:00 Pulse Ox 93 L 02/27/21 20:00 Weight: 166 lb 5 oz - Exam General: Mild Distress, Lethargic HEENT: PERRLA, Hearing Intact, Mucosa Moist & Regan, Nares Patent, Normal Nasal Septum, Posterior Pharynx Clear, Conjunctiva Clear, EOMI, EACs Clear, TMs Clear Neck: Supple, Trachea Midline, 2 Cardiovascular: Regular Rate, Regular Rhythm GI/Abdominal Exam: Tender, Other (Large ventral hernia present) Back Exam: Normal Inspection, Full Range of Motion, NT Extremities: Normal Inspection, Normal Range of Motion, Non-Tender, No Pedal Edema, Normal Capillary Refill Peripheral Pulses: 2+: Carotid (L), Carotid (R), Brachial (L), Brachial (R), Radial (L), Radial (R), Femoral (L), Femoral (R), Popliteal (L), Popliteal (R), Posterior Tibial (L), Posterior Tibial (R), Dorsalis Pedis (L), Dorsalis Pedis (R) Skin: Warm, Dry, Intact Neurological: Cranial Nerves Intact, Reflexes Equal Bilateral Neuro Extensive - Mental Status: Alert, Oriented x3, Normal Mood/Affect, Normal Cognition Neuro Extensive - Motor, Sensory, Reflexes: CN II-XII Intact, Normal Gait, Normal Reflexes DTR: 2+: Bicep (L), Bicep (R), Tricep (L), Tricep (R), Patella (L), Patella (R), Achilles (L), Achilles (R) Psychiatric: Alert, Normal Affect, Normal Mood - Patient Data Lab Results Last 24 hrs: Laboratory Results - last 24 hr 02/27/21 02/27/21 02/27/21 Range/Units 17:21 17:32 17:32 WBC 14.1 H (5.0-10.0) 10^3/uL RBC 3.97 L (4.6-6.2) 10^6/uL Hgb 12.8 L (14.0-18.0) g/dL Hct 39.7 L (40.0-54.0) % MCV 100.0 (80-100) fL MCH 32.2 (27.0-34.0) pg MCHC 32.2 L (33.0-35.0) g/dL Plt Count 375 D (150-450) 10^3/uL Neut % (Auto) 85.8 H (42.2-75.2) % Lymph % (Auto) 7.5 L (20.5-50.1) % Ashe % (Auto) 6.6 (2-8) % Eos % (Auto) 0.0 L (1.0-3.0) % Baso % (Auto) 0.1 (0.0-1.0) % Sodium 148 H (136-145) mmol/L Potassium 3.3 L (3.5-5.1) mmol/L Chloride 104 (98-107) mmol/L Carbon Dioxide 32 (21-32) mmol/L Anion Gap 15.3 H (7-13) mEq/L BUN 52 H D (7-18) mg/dL Creatinine 2.98 H D (0.70-1.30) mg/dL Est Cr Clr Drug Dosing 18.12 mL/min Estimated GFR (MDRD) 20 BUN/Creatinine Ratio 17.4 (No establ ref range) Glucose 171 H (70-99) mg/dL Calcium 9.7 (8.5-10.1) mg/dL Total Bilirubin 0.5 (0.2-1.0) mg/dL AST 14 L (15-37) U/L ALT 18 (16-63) U/L Alkaline Phosphatase 80 (46-116) U/L Total Protein 7.1 (6.4-8.2) g/dL Albumin 2.8 L (3.4-5.0) g/dL Globulin 4.3 Albumin/Globulin Ratio 0.65 SARS-CoV-2 RNA (CRYS) Negative (NEGATIVE) Result Diagrams: 02/27/21 17:32 02/27/21 17:32 Problem List Initiated/Reviewed/Updated: Yes Orders Last 24hrs: Active Orders 24 hr Category Date Time Status Admission Diagnosis [ADT] Stat ADT 02/27/21 21:13 Ordered Admission Status [Patient Status] [ADT] Routine ADT 02/27/21 21:14 Active Bedrest Bedside Commode [RC] ASDIRECTED Care 02/27/21 21:44 Ordered Peripheral IV Care [RC] . DIRECTED Care 02/27/21 21:46 Ordered Vital Signs [RC] Q4H Care 02/27/21 21:45 Ordered Consult to Case Management/Musical Instrument Supervisor [CONS] Cons 02/27/21 21:44 Ordered Routine Consult to Hospice [CONS] Routine Cons 02/27/21 21:48 Ordered Nothing per Oral Now Diet [DIET] Diet 02/27/21 Dinner Ordered BASIC METABOLIC PANEL,BMP [CHEM] Routine Lab 02/28/21 05:00 Ordered CBC WITH AUTO DIFF [HEME] Routine Lab 02/28/21 05:00 Ordered CULTURE BLOOD [BC] Stat Lab 02/27/21 20:05 Received FERRITIN [CHEM] Routine Lab 02/27/21 21:49 Ordered IRON/TIBC [CHEM] Routine Lab 02/27/21 21:49 Ordered MAGNESIUM [CHEM] Routine Lab 02/28/21 05:00 Ordered OCCULT BLOOD DIAGNOSTIC [OP] Routine Lab 02/27/21 21:49 Ordered PHOSPHORUS [CHEM] Routine Lab 02/28/21 05:00 Ordered URINALYSIS W/MICROSCOPIC [UA W/MICROSCOPIC] [URIN] Lab 02/27/21 21:49 Ordered Routine Acetaminophen [TylenoL] Med 02/27/21 21:44 Ordered 650 mg PO Q4H PRN Benzocaine/Docusate Sodium [Enemeez Plus Mini Enema] Med 02/27/21 22:00 Ordered 1 each RECTAL Q4H Heparin Sodium Med 02/28/21 09:00 Ordered 5,000 units SUBCUT Q12HR Ondansetron [Zofran] Med 02/27/21 21:44 Ordered 4 mg IVPUSH Q4H PRN Potassium Chloride [KCL in Water 20 MEQ/100 ML] 20 meq Med 02/27/21 22:00 Ordered Premix Bag 1 bag IV Q4H Sodium Chloride 0.45% @ 75 MLS/HR(1000ml) Med 02/27/21 22:00 Ordered Sodium Chloride 0.45% 1,000 ml IV ASDIRECTED Sodium Chloride 0.9% [Saline Flush] Med 02/27/21 21:44 Ordered 10 ml FLUSH ASDIRECTED PRN Peripheral IV Insertion Adult [OM.PC] Routine Oth 02/27/21 21:44 Ordered Resuscitation Status Routine Resus Stat 02/27/21 21:44 Ordered Medication Orders Acetaminophen (Acetaminophen 325 Mg Tab) 650 mg PO Q4H PRN PRN Reason: Pain (Mild 1-3)/fever Ondansetron HCl (Ondansetron 4 Mg/2 Ml Sdv) 4 mg IVPUSH Q4H PRN PRN Reason: Nausea/Vomiting Sodium Chloride (Sodium Chloride 0.9% 10 Ml Syringe) 10 ml FLUSH ASDIRECTED PRN PRN Reason: Keep Vein Open Assessment/Plan Comment:: Surgical History: Cholecystectomy, CABG, cardiac stent, right hemicolectomy, bilateral cataract surgery, oral surgery Family History: Cancer, stroke, coronary artery disease, hyperlipidemia Social History: Tobacco: Former smoker Alcohol: Denies Caffeine: Cola Drugs: Never Allergies: No known drug allergies Code Status: DNR, DNI Assessment / Plan: Small bowel obstruction and large bowel obstruction. Is notified by emergency department staffing that surgery was consulted at outside facility and they indicated that transfer was not indicated. NPO. Fleet enema every 4 hours x3 doses plus IV half-normal saline at 75 mils per hour. Once patient starts having bowel movements, I will start the patient on oral agents Hypokalemia. Will monitor potassium levels intermittently and supplement as necessary Acute on chronic kidney disease, baseline creatinine approximately 1.5. Will monitor creatinine intermittently. IV half-normal saline at 75 mL's per hour Hyponatremia. Monitor sodium levels intermittently. IV half-normal saline 75 mils per hour Alzheimer's dementia, likely advanced Pneumonia. Azithromycin 500 mg IV daily plus Rocephin 1 g IV daily Depression Anemia. Will monitor hemoglobin level intermittently. Check serum ferritin, iron panel, fecal occult blood Coronary artery disease, status post stent, status post CABG GERD Hyperlipidemia Hypertension Erectile dysfunction History of esophageal strictures/Schatzki ring with history of esophageal dilatation Nephrolithiasis, asymptomatic History of colon cancer, status post right hemicolectomy Arthritis Chronic pain History of TIA Anxiety with history of panic attack Degenerative disc disease Peripheral vascular disease DVT prophylaxis. Heparin 5000 units subcutaneously every 12 hours Disposition: I will request that case management speak with the patient's to determine w hether he may need more home services or whether he may require care home placement. I will request that the hospice agency speak with the patient's given his advanced dementia. Anticipated discharge in 48-9 6 hours. At the time of admission, the patient told medications were pending input to the EMR/BHR system. Once their input, they will be reviewed and reconciled END OF DOCTOR EMAMIS HISTORY AND PHYSICAL / CONSULTATION NOTE
[2021-02-27] MEDS ORDERED: Benzocaine/Docusate Sodium 20-283 MG/5 ML Enema RECTAL SCH (22:00)
[2021-02-27] MEDS ORDERED: cefTRIAXone 1 GM in Sodium Chloride 0.9% 50 ML IV SCH (22:00)
[2021-02-27] MEDS ORDERED: Potassium Chloride 20 MEQ in Premix Bag 1 BAG IV SCH (22:00)
[2021-02-27] MEDS ORDERED: Water For Injection, Sterile 20 ML ONE (22:13)
[2021-02-27] MEDS: cefTRIAXone 1 GM Vial IVPUSH SCH (22:24)
[2021-02-27] MEDS: Azithromycin 500 MG in Sodium Chloride 0.9% 250 ML IV SCH (22:24)
[2021-02-27] MEDS: Sodium Chloride 0.45% 1,000 ML IV SCH (22:26)
[2021-02-28] MEDS: Potassium Chloride 20 MEQ in Premix Bag 1 BAG IV SCH ×2 (00:21→02:57)
[2021-02-28] MEDS: Benzocaine/Docusate Sodium 20-283 MG/5 ML Enema RECTAL SCH ×3 (02:56→07:20)
[2021-02-28] MEDS: Morphine 2 MG/ML SYRINGE IVPUSH PRN ×2 (02:57→10:10)
[2021-02-28] MEDS: Pantoprazole 40 MG Tab.CR PO SCH (06:22)
[2021-02-28 06:32] LABS: ANION GAP 8.5 mEq/L (7-13)
--- NOTE | 2021-02-28 07:24 | PCM.PN ---
- General Info Date of Service: 02/28/21 Subjective Update: The patient is currently somnolent and he has a history of advanced dementia and unfortunately he is unable to provide any feedback. - Review of Systems General: Reports: No Symptoms HEENT: Reports: No Symptoms Pulmonary: Reports: No Symptoms Cardiovascular: Reports: No Symptoms Gastrointestinal: Reports: No Symptoms Genitourinary: Reports: No Symptoms Musculoskeletal: Reports: No Symptoms Skin: Reports: No Symptoms Neurological: Reports: No Symptoms Psychiatric: Reports: No Symptoms - Patient Data Vitals - Most Recent: Last Vital Signs Temp 98.7 F 02/28/21 02:59 Pulse 99 02/28/21 02:59 Resp 20 02/28/21 02:59 BP 123/71 02/28/21 02:59 Pulse Ox 93 L 02/28/21 02:59 Weight - Most Recent: 161 lb 3.2 oz I&O - Last 24 Hours: Intake & Output 02/27/21 02/28/21 02/28/21 22:59 06:59 14:59 Intake Total 300 Balance 300 Lab Results Last 24 Hours: Laboratory Results - last 24 hr 02/27/21 02/27/21 02/27/21 Range/Units 17:21 17:32 17:32 WBC 14.1 H (5.0-10.0) 10^3/uL RBC 3.97 L (4.6-6.2) 10^6/uL Hgb 12.8 L (14.0-18.0) g/dL Hct 39.7 L (40.0-54.0) % MCV 100.0 (80-100) fL MCH 32.2 (27.0-34.0) pg MCHC 32.2 L (33.0-35.0) g/dL Plt Count 375 D (150-450) 10^3/uL Neut % (Auto) 85.8 H (42.2-75.2) % Lymph % (Auto) 7.5 L (20.5-50.1) % [place] % (Auto) 6.6 (2-8) % Eos % (Auto) 0.0 L (1.0-3.0) % Baso % (Auto) 0.1 (0.0-1.0) % Sodium 148 H (136-145) mmol/L Potassium 3.3 L (3.5-5.1) mmol/L Chloride 104 (98-107) mmol/L Carbon Dioxide 32 (21-32) mmol/L Anion Gap 15.3 H (7-13) mEq/L BUN 52 H D (7-18) mg/dL Creatinine 2.98 H D (0.70-1.30) mg/dL Est Cr Clr Drug Dosing 18.12 mL/min Estimated GFR (MDRD) 20 BUN/Creatinine Ratio 17.4 (No establ ref range) Glucose 171 H (70-99) mg/dL Calcium 9.7 (8.5-10.1) mg/dL Phosphorus (2.6-4.7) mg/dL Magnesium (1.8-2.4) mg/dL Iron (65-175) ug/dL TIBC (250-450) ug/dL % Saturation (20.0-50.0) % Ferritin (26-388) mg/mL Total Bilirubin 0.5 (0.2-1.0) mg/dL AST 14 L (15-37) U/L ALT 18 (16-63) U/L Alkaline Phosphatase 80 (46-116) U/L Total Protein 7.1 (6.4-8.2) g/dL Albumin 2.8 L (3.4-5.0) g/dL Globulin 4.3 Albumin/Globulin Ratio 0.65 SARS-CoV-2 RNA (CRYS) Negative (NEGATIVE) 02/27/21 02/28/21 02/28/21 Range/Units 20:05 06:00 06:00 WBC 13.2 H (5.0-10.0) 10^3/uL RBC 3.40 L (4.6-6.2) 10^6/uL Hgb 11.0 L D (14.0-18.0) g/dL Hct 35.1 L (40.0-54.0) % MCV 103.2 H D (80-100) fL MCH 32.4 (27.0-34.0) pg MCHC 31.3 L (33.0-35.0) g/dL Plt Count 309 (150-450) 10^3/uL Neut % (Auto) 83.5 H (42.2-75.2) % Lymph % (Auto) 8.5 L (20.5-50.1) % [place] % (Auto) 7.8 (2-8) % Eos % (Auto) 0.1 L (1.0-3.0) % Baso % (Auto) 0.1 (0.0-1.0) % Sodium 147 H (136-145) mmol/L Potassium 3.5 (3.5-5.1) mmol/L Chloride 108 H (98-107) mmol/L Carbon Dioxide 34 H (21-32) mmol/L Anion Gap 8.5 (7-13) mEq/L BUN 55 H (7-18) mg/dL Creatinine 2.47 H (0.70-1.30) mg/dL Est Cr Clr Drug Dosing 21.87 mL/min Estimated GFR (MDRD) 25 BUN/Creatinine Ratio (No establ ref range) Glucose 120 H (70-99) mg/dL Calcium 8.8 (8.5-10.1) mg/dL Phosphorus 3.3 (2.6-4.7) mg/dL Magnesium 4.0 H (1.8-2.4) mg/dL Iron 16 L (65-175) ug/dL TIBC 202 L (250-450) ug/dL % Saturation 7.9 L (20.0-50.0) % Ferritin 920 H (26-388) mg/mL Total Bilirubin (0.2-1.0) mg/dL AST (15-37) U/L ALT (16-63) U/L Alkaline Phosphatase (46-116) U/L Total Protein (6.4-8.2) g/dL Albumin (3.4-5.0) g/dL Globulin Albumin/Globulin Ratio SARS-CoV-2 RNA (CRYS) (NEGATIVE) [place] Results Last 24 Hours: Microbiology 02/28/21 00:30 Stool Occult Blood (ISREAL) - Final Stool / Feces NEGATIVE OCCULT BLOOD REFERENCE RANGE: NEGATIVE Med Orders - Current: Current Medications Acetaminophen (Acetaminophen 325 Mg Tab) 650 mg PO Q4H PRN PRN Reason: Pain (Mild 1-3)/fever Aspirin (Aspirin 81 Mg Tab.Ec) 81 mg PO DAILY [facility] Atorvastatin Calcium (Atorvastatin 20 Mg Tab) 40 mg PO DAILY [facility] Ceftriaxone Sodium (Ceftriaxone 1 Gm Vial) 1 gm IVPUSH Q24H [facility] Last Admin: 02/27/21 22:24 Dose: 1 gm Documented by: Divalproex Sodium (Divalproex Sodium 250 Mg Tab.Er) 250 mg PO DAILY [facility] Donepezil HCl (Donepezil 10 Mg Tab) 10 mg PO DAILY [facility] Heparin Sodium (Porcine) (Heparin Sodium 5,000 Units/Ml Vial) 5,000 units SUBCUT Q12HR [facility] Sodium Chloride (Sodium Chloride 0.45%) 1,000 mls @ 75 mls/hr IV ASDIRECTED [facility] Last Admin: 02/27/21 22:26 Dose: 75 mls/hr Documented by: Azithromycin 500 mg/ Sodium (Chloride) 250 mls @ 250 mls/hr IV Q24H [facility] Last Admin: 02/27/21 22:24 Dose: 250 mls/hr Documented by: Memantine (Memantine 10 Mg Tab) 10 mg PO BID [facility] Morphine Sulfate (Morphine 2 Mg/Ml Syringe) 1 mg IVPUSH Q4H PRN PRN Reason: Pain Last Admin: 02/28/21 02:57 Dose: 1 mg Documented by: Ondansetron HCl (Ondansetron 4 Mg/2 Ml Sdv) 4 mg IVPUSH Q4H PRN PRN Reason: Nausea/Vomiting Pantoprazole Sodium (Pantoprazole 40 Mg Tab.Cr) 40 mg PO ACBREAKFAST [facility] Last Admin: 02/28/21 06:22 Dose: 40 mg Documented by: Sertraline HCl (Sertraline 50 Mg Tab) 100 mg PO DAILY [facility] Sodium Chloride (Sodium Chloride 0.9% 10 Ml Syringe) 10 ml FLUSH ASDIRECTED PRN PRN Reason: Keep Vein Open Trazodone HCl (Trazodone 50 Mg Tab) 50 mg PO BEDTIME [facility] Discontinued Medications Docusate Sodium/Benzocaine (Benzocaine/Docusate Sodium 20-283 Mg/5 Ml Enema) 1 each RECTAL Q4H [facility] Last Admin: 02/27/21 22:23 Dose: 1 each Documented by: Docusate Sodium/Benzocaine (Benzocaine/Docusate Sodium 20-283 Mg/5 Ml Enema) 1 each RECTAL Q4H [facility] Stop: 02/28/21 06:01 Last Admin: 02/28/21 07:20 Dose: Not Given Documented by: Piperacillin Sod/Tazobactam (Sod 3.375 gm/ Sodium Chloride) 100 mls @ 200 mls/hr IV ONETIME ONE Stop: 02/27/21 20:26 Last Admin: 02/27/21 20:24 Dose: 200 mls/hr Documented by: Sterile Water (Sterile Water For Injection) Confirm Administered Dose 20 mls @ as directed .ROUTE .STK-MED ONE Stop: 02/27/21 22:14 Last Admin: 02/27/21 22:30 Dose: Not Given Documented by: Potassium Chloride 20 meq/ (Premix) 100 mls @ 50 mls/hr IV Q2H [facility] Stop: 02/28/21 03:59 Last Admin: 02/28/21 02:57 Dose: 50 mls/hr Documented by: Lorazepam (Lorazepam 2 Mg/Ml Sdv) 1 mg IVPUSH ONETIME ONE Stop: 02/27/21 19:42 Last Admin: 02/27/21 19:54 Dose: 1 mg Documented by: - Exam General: Lethargic. No: Alert, Oriented HEENT: Pupils Equal, Pupils Reactive, EOMI, Mucous Membr. Moist/[place] Neck: Supple Lungs: Clear to Auscultation, Normal Respiratory Effort Cardiovascular: Regular Rate, Regular Rhythm GI/Abdominal Exam: Normal Bowel Sounds, Soft, Non-Tender, No Organomegaly, No Distention, No Abnormal Bruit, No Mass, Pelvis Stable Back Exam: Normal Inspection, Full Range of Motion Extremities: Normal Inspection, Normal Range of Motion, Non-Tender, No Pedal Edema, Normal Capillary Refill Peripheral Pulses: 2+: Carotid (L), Carotid (R), Brachial (L), Brachial (R), Radial (L), Radial (R), Femoral (L), Femoral (R), Popliteal (L), Popliteal (R), Posterior Tibial (L), Posterior Tibial (R), Dorsalis Pedis (L), Dorsalis Pedis (R) Skin: Warm, Dry, Intact Wound/Incisions: Healing Well Neurological: No New Focal Deficit Psy/Mental Status: Alert, Normal Affect, Normal Mood - Patient Data Lab Results Last 24 hrs: Laboratory Results - last 24 hr 02/27/21 02/27/21 02/27/21 Range/Units 17:21 17:32 17:32 WBC 14.1 H (5.0-10.0) 10^3/uL RBC 3.97 L (4.6-6.2) 10^6/uL Hgb 12.8 L (14.0-18.0) g/dL Hct 39.7 L (40.0-54.0) % MCV 100.0 (80-100) fL MCH 32.2 (27.0-34.0) pg MCHC 32.2 L (33.0-35.0) g/dL Plt Count 375 D (150-450) 10^3/uL Neut % (Auto) 85.8 H (42.2-75.2) % Lymph % (Auto) 7.5 L (20.5-50.1) % [place] % (Auto) 6.6 (2-8) % Eos % (Auto) 0.0 L (1.0-3.0) % Baso % (Auto) 0.1 (0.0-1.0) % Sodium 148 H (136-145) mmol/L Potassium 3.3 L (3.5-5.1) mmol/L Chloride 104 (98-107) mmol/L Carbon Dioxide 32 (21-32) mmol/L Anion Gap 15.3 H (7-13) mEq/L BUN 52 H D (7-18) mg/dL Creatinine 2.98 H D (0.70-1.30) mg/dL Est Cr Clr Drug Dosing 18.12 mL/min Estimated GFR (MDRD) 20 BUN/Creatinine Ratio 17.4 (No establ ref range) Glucose 171 H (70-99) mg/dL Calcium 9.7 (8.5-10.1) mg/dL Phosphorus (2.6-4.7) mg/dL Magnesium (1.8-2.4) mg/dL Iron (65-175) ug/dL TIBC (250-450) ug/dL % Saturation (20.0-50.0) % Ferritin (26-388) mg/mL Total Bilirubin 0.5 (0.2-1.0) mg/dL AST 14 L (15-37) U/L ALT 18 (16-63) U/L Alkaline Phosphatase 80 (46-116) U/L Total Protein 7.1 (6.4-8.2) g/dL Albumin 2.8 L (3.4-5.0) g/dL Globulin 4.3 Albumin/Globulin Ratio 0.65 SARS-CoV-2 RNA (CRYS) Negative (NEGATIVE) 02/27/21 02/28/21 02/28/21 Range/Units 20:05 06:00 06:00 WBC 13.2 H (5.0-10.0) 10^3/uL RBC 3.40 L (4.6-6.2) 10^6/uL Hgb 11.0 L D (14.0-18.0) g/dL Hct 35.1 L (40.0-54.0) % MCV 103.2 H D (80-100) fL MCH 32.4 (27.0-34.0) pg MCHC 31.3 L (33.0-35.0) g/dL Plt Count 309 (150-450) 10^3/uL Neut % (Auto) 83.5 H (42.2-75.2) % Lymph % (Auto) 8.5 L (20.5-50.1) % [place] % (Auto) 7.8 (2-8) % Eos % (Auto) 0.1 L (1.0-3.0) % Baso % (Auto) 0.1 (0.0-1.0) % Sodium 147 H (136-145) mmol/L Potassium 3.5 (3.5-5.1) mmol/L Chloride 108 H (98-107) mmol/L Carbon Dioxide 34 H (21-32) mmol/L Anion Gap 8.5 (7-13) mEq/L BUN 55 H (7-18) mg/dL Creatinine 2.47 H (0.70-1.30) mg/dL Est Cr Clr Drug Dosing 21.87 mL/min Estimated GFR (MDRD) 25 BUN/Creatinine Ratio (No establ ref range) Glucose 120 H (70-99) mg/dL Calcium 8.8 (8.5-10.1) mg/dL Phosphorus 3.3 (2.6-4.7) mg/dL Magnesium 4.0 H (1.8-2.4) mg/dL Iron 16 L (65-175) ug/dL TIBC 202 L (250-450) ug/dL % Saturation 7.9 L (20.0-50.0) % Ferritin 920 H (26-388) mg/mL Total Bilirubin (0.2-1.0) mg/dL AST (15-37) U/L ALT (16-63) U/L Alkaline Phosphatase (46-116) U/L Total Protein (6.4-8.2) g/dL Albumin (3.4-5.0) g/dL Globulin Albumin/Globulin Ratio SARS-CoV-2 RNA (RCYS) (NEGATIVE) Result Diagrams: 02/28/21 06:00 02/28/21 06:00 [place] Results Last 24 hrs: Microbiology 02/28/21 00:30 Stool Occult Blood (ISREAL) - Final Stool / Feces NEGATIVE OCCULT BLOOD REFERENCE RANGE: NEGATIVE Sepsis Event Note - Evaluation Sepsis Screening Result: No Definite Risk - Focused Exam Vital Signs: Vital Signs Temp Pulse Resp BP BP BP Pulse Ox 02/28/21 02:59 98.7 F 99 20 123/71 93 L 02/28/21 00:00 97.8 F 81 20 121/58 L 93 L 02/27/21 21:45 97.5 F 86 20 115/63 118/67 93 L 02/27/21 20:00 97.9 F 92 14 126/69 93 L - Problem List Review Problem List Initiated/Reviewed/Updated: Yes - My Orders Last 24 Hours: My Active Orders 02/27/21 Dinner Nothing per Oral Now Diet [DIET] 02/27/21 21:44 Bedrest Bedside Commode [RC] ASDIRECTED Consult to Case Management/Money Order Clerk [CONS] Routine Acetaminophen [TylenoL] 650 mg PO Q4H PRN Ondansetron [Zofran] 4 mg IVPUSH Q4H PRN Sodium Chloride 0.9% [Saline Flush] 10 ml FLUSH ASDIRECTED PRN Peripheral IV Insertion Adult [OM.PC] Routine Resuscitation Status Routine 02/27/21 21:45 Vital Signs [RC] 00,04,08,12,16,20 02/27/21 21:46 Peripheral IV Care [RC] 09,21 02/27/21 21:48 Consult to Hospice [CONS] Routine 02/27/21 21:49 URINALYSIS W/MICROSCOPIC [UA W/MICROSCOPIC] [URIN] Routine 02/27/21 21:56 Aspiration Precautions [RC] ASDIRECTED 02/27/21 22:00 Azithromycin [Zithromax] 500 mg Sodium Chloride 0.9% [Normal Saline (AdvBag)] 250 ml IV Q24H Sodium Chloride 0.45% 1,000 ml IV ASDIRECTED cefTRIAXone [Rocephin] 1 gm IVPUSH Q24H 02/27/21 22:01 Morphine 1 mg IVPUSH Q4H PRN 02/28/21 06:00 Pantoprazole [ProTONIX] 40 mg PO ACBREAKFAST 02/28/21 09:00 Aspirin [Halfprin] 81 mg PO DAILY Divalproex Sodium [Depakote ER] 250 mg PO DAILY Donepezil [Aricept] 10 mg PO DAILY Heparin Sodium 5,000 units SUBCUT Q12HR Memantine [Namenda] 10 mg PO BID Sertraline [Zoloft] 100 mg PO DAILY atorvaSTATin [Lipitor] 40 mg PO DAILY 02/28/21 21:00 traZODone 50 mg PO BEDTIME 03/01/21 05:00 BASIC METABOLIC PANEL,BMP [CHEM] Routine CBC WITH AUTO DIFF [HEME] Routine - Plan Plan:: Surgical History: Cholecystectomy, CABG, cardiac stent, right hemicolectomy, bilateral cataract surgery, oral surgery Family History: Cancer, stroke, coronary artery disease, hyperlipidemia Social History: Tobacco: Former smoker Alcohol: Denies Caffeine: Cola Drugs: Never Allergies: No known drug allergies Code Status: DNR, DNI Assessment / Plan: Small bowel obstruction and large bowel obstruction. Is notified by emergency department staffing that surgery was consulted at outside facility and they indicated that transfer was not indicated. NPO. Fleet enema every 4 hours x3 doses plus IV half-normal saline at 75 mils per hour. Once patient starts having bowel movements, I will start the patient on oral agents Hypokalemia. Will monitor potassium levels intermittently and supplement as necessary Acute on chronic kidney disease, baseline creatinine approximately 1.5. Will monitor creatinine intermittently. IV half-normal saline at 75 mL's per hour Hyponatremia. Monitor sodium levels intermittently. 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 Aricept 10 mg p.o. daily plus Namenda 10 mg p.o. twice daily Pneumonia. Azithromycin 500 mg IV daily plus Rocephin 1 g IV daily Depression. Depakote ER 250 mg p.o. daily plus Zoloft 100 mg p.o. daily plus trazodone 50 mg p.o. nightly Anemia of chronic disease/macrocytic anemia. Will monitor hemoglobin level intermittently Coronary artery disease, status post stent, status post CABG. aspirin 81 mg p.o. daily plus Lipitor 40 mg p.o. nightly GERD. Protonix 40 mg p.o. daily Hyperlipidemia. Lipitor 40 mg p.o. nightly Hypertension Erectile dysfunction History of esophageal strictures/Schatzki ring with history of esophageal dilatation Nephrolithiasis, asymptomatic History of colon cancer, status post right hemicolectomy Arthritis Chronic pain History of TIA. Aspirin 81 mg p.o. daily plus Lipitor 40 mg p.o. nightly Anxiety with history of panic attack Degenerative disc disease Peripheral vascular disease. Aspirin 81 mg p.o. daily plus Lipitor 40 mg p.o. nightly DVT prophylaxis. Heparin 5000 units subcutaneously every 12 hours Disposition: I will request that case management speak with the patient's to determine whether he may need more home services or whether he may require half-way placement. I will request that the hospice agency speak with the patient's given his advanced dementia. Anticipated discharge in 24 to 48 hours. END OF DOCTOR EMAMIS HISTORY AND PHYSICAL / CONSULTATION NOTE
[2021-02-28] MEDS: Sertraline 50 MG Tab PO SCH (10:08)
[2021-02-28] MEDS: Aspirin 81 MG Tab.EC PO SCH (10:09)
[2021-02-28] MEDS: Donepezil 10 MG Tab PO SCH (10:09)
[2021-02-28] MEDS: Folic Acid 1 MG Tab PO SCH (10:09)
[2021-02-28] MEDS: Memantine 10 MG Tab PO SCH ×2 (10:09→20:39)
[2021-02-28] MEDS: Divalproex Sodium 250 MG Tab.ER PO SCH (10:09)
[2021-02-28] MEDS: atorvaSTATin 20 MG Tab PO SCH (10:10)
[2021-02-28] MEDS: Heparin Sodium 5,000 Units/ML Vial SUBCUT SCH ×2 (10:10→20:39)
--- NOTE | 2021-02-28 13:37 | CR ---
PROCEDURE INFORMATION: Exam: XR Abdomen Exam date and time: 02/28/2021 9:59 AM Age: 85 years old Clinical indication: Abdominal pain TECHNIQUE: Imaging protocol: XR of the abdomen. Views: Frontal supine view of the abdomen. 1 View. COMPARISON: CT Abdomen Pelvis wo Cont 02/27/2021 6:25 PM FINDINGS: Gastrointestinal tract: The bowel gas pattern is nonobstructive and nonspecific. A large amount of stool is noted throughout the colon. Bones/joints: The lumbar spine demonstrates mild degenerative changes at multiple levels. Other findings: Calcification overlies the lower pelvis. IMPRESSION: 1. The bowel gas pattern is nonobstructive and nonspecific. 2. A large amount of stool is noted throughout the colon.
[2021-02-28] MEDS ORDERED: Benzocaine/Docusate Sodium 20-283 MG/5 ML Enema RECTAL ONE (14:25)
[2021-02-28] MEDS: Sodium Chloride 0.45% 1,000 ML IV SCH (14:52)
[2021-02-28] MEDS: Polyethylene Glycol 3350 Powder 17 GM Packet PO SCH (18:26)
[2021-02-28] MEDS: traZODone 50 MG Tab PO SCH (20:39)
[2021-02-28] MEDS ORDERED: Water For Injection, Sterile 20 ML ONE (21:18)
[2021-02-28] MEDS: Azithromycin 500 MG in Sodium Chloride 0.9% 250 ML IV SCH (21:31)
[2021-02-28] MEDS: cefTRIAXone 1 GM Vial IVPUSH SCH (21:31)
[2021-03-01] MEDS: Sodium Chloride 0.45% 1,000 ML IV SCH (06:10)
[2021-03-01 06:31] LABS: ANION GAP 10.3 mEq/L (7-13)
--- NOTE | 2021-03-01 07:38 | PCM.PN ---
- General Info Date of Service: 03/01/21 Subjective Update: The patient is demented and incredibly hard of hearing and thus I am unable to obtain feedback from the patient regarding his symptomatology Functional Status: Reports: Pain Controlled - Review of Systems General: Reports: No Symptoms HEENT: Reports: No Symptoms Pulmonary: Reports: No Symptoms Cardiovascular: Reports: No Symptoms Gastrointestinal: Reports: No Symptoms Genitourinary: Reports: No Symptoms Musculoskeletal: Reports: No Symptoms Skin: Reports: No Symptoms Neurological: Reports: No Symptoms Psychiatric: Reports: No Symptoms - Patient Data Vitals - Most Recent: Last Vital Signs Temp 97.3 F 03/01/21 00:00 Pulse 80 03/01/21 00:00 Resp 20 03/01/21 00:00 BP 90/52 L 03/01/21 00:00 Pulse Ox 93 L 03/01/21 00:00 Weight - Most Recent: 161 lb 3.2 oz Lab Results Last 24 Hours: Laboratory Results - last 24 hr 02/28/21 03/01/21 03/01/21 Range/Units 06:00 06:10 06:10 WBC 8.6 (5.0-10.0) 10^3/uL RBC 3.04 L (4.6-6.2) 10^6/uL Hgb 9.8 L (14.0-18.0) g/dL Hct 31.9 L (40.0-54.0) % MCV 104.9 H (80-100) fL MCH 32.2 (27.0-34.0) pg MCHC 30.7 L (33.0-35.0) g/dL Plt Count 255 (150-450) 10^3/uL Neut % (Auto) 78.8 H (42.2-75.2) % Lymph % (Auto) 12.6 L (20.5-50.1) % [place] % (Auto) 8.0 (2-8) % Eos % (Auto) 0.6 L (1.0-3.0) % Baso % (Auto) 0.0 (0.0-1.0) % Sodium 147 H (136-145) mmol/L Potassium 3.3 L (3.5-5.1) mmol/L Chloride 109 H (98-107) mmol/L Carbon Dioxide 31 (21-32) mmol/L Anion Gap 10.3 (7-13) mEq/L BUN 51 H (7-18) mg/dL Creatinine 1.81 H (0.70-1.30) mg/dL Est Cr Clr Drug Dosing 29.84 mL/min Estimated GFR (MDRD) 36 Glucose 96 (70-99) mg/dL Calcium 8.1 L (8.5-10.1) mg/dL Vitamin B12 603 (193-986) pg/mL Folate 7.6 L (8.6-58.9) ng/mL Free T4 1.55 H (0.76-1.46) ng/dL TSH, Ultra Sensitive 1.01 (0.36-3.74) uIU/mL Isreal Results Last 24 Hours: Microbiology 02/27/21 20:05 Aerobic Blood Culture - Preliminary Blood - Arm, Right NO GROWTH AFTER 1 DAY Anaerobic Blood Culture - Preliminary NO GROWTH AFTER 1 DAY Med Orders - Current: Current Medications Acetaminophen (Acetaminophen 325 Mg Tab) 650 mg PO Q4H PRN PRN Reason: Pain (Mild 1-3)/fever Aspirin (Aspirin 81 Mg Tab.Ec) 81 mg PO DAILY [facility] Last Admin: 02/28/21 10:09 Dose: 81 mg Documented by: Atorvastatin Calcium (Atorvastatin 20 Mg Tab) 40 mg PO DAILY [facility] Last Admin: 02/28/21 10:10 Dose: 40 mg Documented by: Ceftriaxone Sodium (Ceftriaxone 1 Gm Vial) 1 gm IVPUSH Q24H [facility] Last Admin: 02/28/21 21:31 Dose: 1 gm Documented by: Divalproex Sodium (Divalproex Sodium 250 Mg Tab.Er) 250 mg PO DAILY [facility] Last Admin: 02/28/21 10:09 Dose: 250 mg Documented by: Donepezil HCl (Donepezil 10 Mg Tab) 10 mg PO DAILY [facility] Last Admin: 02/28/21 10:09 Dose: 10 mg Documented by: Folic Acid (Folic Acid 1 Mg Tab) 1 mg PO DAILY [facility] Last Admin: 02/28/21 10:09 Dose: 1 mg Documented by: Heparin Sodium (Porcine) (Heparin Sodium 5,000 Units/Ml Vial) 5,000 units SUBCUT Q12HR [facility] Last Admin: 02/28/21 20:39 Dose: 5,000 units Documented by: Azithromycin 500 mg/ Sodium (Chloride) 250 mls @ 250 mls/hr IV Q24H [facility] Last Admin: 02/28/21 21:31 Dose: 250 mls/hr Documented by: Dextrose/Water (Dextrose 5% In Water) 1,000 mls @ 75 mls/hr IV ASDIRECTED [facility] Memantine (Memantine 10 Mg Tab) 10 mg PO BID [facility] Last Admin: 02/28/21 20:39 Dose: 10 mg Documented by: Morphine Sulfate (Morphine 2 Mg/Ml Syringe) 1 mg IVPUSH Q4H PRN PRN Reason: Pain Last Admin: 02/28/21 10:10 Dose: 1 mg Documented by: Ondansetron HCl (Ondansetron 4 Mg/2 Ml Sdv) 4 mg IVPUSH Q4H PRN PRN Reason: Nausea/Vomiting Pantoprazole Sodium (Pantoprazole 40 Mg Tab.Cr) 40 mg PO ACBREAKFAST [facility] Last Admin: 02/28/21 06:22 Dose: 40 mg Documented by: Polyethylene Glycol (Polyethylene Glycol 3350 Powder 17 Gm Packet) 17 gm PO DAILY [facility] Last Admin: 02/28/21 18:26 Dose: 17 gm Documented by: Potassium Chloride (Potassium Chloride 10 Meq Tab.Er) 40 meq PO Q2H [facility] Stop: 03/01/21 09:46 Senna/Docusate Sodium (Docusate Sodium/Sennosides 50-8.6 Mg Tab) 2 tab PO BID [facility] Last Admin: 02/28/21 20:39 Dose: 2 tab Documented by: Sertraline HCl (Sertraline 50 Mg Tab) 100 mg PO DAILY [facility] Last Admin: 02/28/21 10:08 Dose: 100 mg Documented by: Sodium Chloride (Sodium Chloride 0.9% 10 Ml Syringe) 10 ml FLUSH ASDIRECTED PRN PRN Reason: Keep Vein Open Trazodone HCl (Trazodone 50 Mg Tab) 50 mg PO BEDTIME [facility] Last Admin: 02/28/21 20:39 Dose: 50 mg Documented by: Discontinued Medications Docusate Sodium/Benzocaine (Benzocaine/Docusate Sodium 20-283 Mg/5 Ml Enema) 1 each RECTAL Q4H [facility] Last Admin: 02/27/21 22:23 Dose: 1 each Documented by: Docusate Sodium/Benzocaine (Benzocaine/Docusate Sodium 20-283 Mg/5 Ml Enema) 1 each RECTAL Q4H [facility] Stop: 02/28/21 06:01 Last Admin: 02/28/21 07:20 Dose: Not Given Documented by: Docusate Sodium/Benzocaine (Benzocaine/Docusate Sodium 20-283 Mg/5 Ml Enema) 1 each RECTAL ONETIME ONE Stop: 02/28/21 14:26 Last Admin: 02/28/21 14:54 Dose: 1 each Documented by: Piperacillin Sod/Tazobactam (Sod 3.375 gm/ Sodium Chloride) 100 mls @ 200 mls/hr IV ONETIME ONE Stop: 02/27/21 20:26 Last Admin: 02/27/21 20:24 Dose: 200 mls/hr Documented by: Sodium Chloride (Sodium Chloride 0.45%) 1,000 mls @ 75 mls/hr IV ASDIRECTED [facility] Last Admin: 03/01/21 06:10 Dose: 75 mls/hr Documented by: Sterile Water (Sterile Water For Injection) Confirm Administered Dose 20 mls @ as directed .ROUTE .STK-MED ONE Stop: 02/27/21 22:14 Last Admin: 02/27/21 22:30 Dose: Not Given Documented by: Potassium Chloride 20 meq/ (Premix) 100 mls @ 50 mls/hr IV Q2H [facility] Stop: 02/28/21 03:59 Last Admin: 02/28/21 02:57 Dose: 50 mls/hr Documented by: Sterile Water (Sterile Water For Injection) Confirm Administered Dose 20 mls @ as directed .ROUTE .STK-MED ONE Stop: 02/28/21 21:19 Lorazepam (Lorazepam 2 Mg/Ml Sdv) 1 mg IVPUSH ONETIME ONE Stop: 02/27/21 19:42 Last Admin: 02/27/21 19:54 Dose: 1 mg Documented by: - Exam General: Lethargic HEENT: Pupils Equal Neck: Supple Lungs: Clear to Auscultation, Normal Respiratory Effort Cardiovascular: Regular Rate, Regular Rhythm GI/Abdominal Exam: Normal Bowel Sounds, Soft, Non-Tender, No Organomegaly, No Distention, No Abnormal Bruit, No Mass, Pelvis Stable Back Exam: Normal Inspection, Full Range of Motion Extremities: Normal Inspection, Normal Range of Motion, Non-Tender, No Pedal Edema, Normal Capillary Refill Peripheral Pulses: 2+: Carotid (L), Carotid (R), Brachial (L), Brachial (R), Radial (L), Radial (R), Femoral (L), Femoral (R), Popliteal (L), Popliteal (R), Posterior Tibial (L), Posterior Tibial (R), Dorsalis Pedis (L), Dorsalis Pedis (R) Skin: Warm, Dry, Intact Wound/Incisions: Healing Well Neurological: No New Focal Deficit Psy/Mental Status: Alert, Normal Affect, Normal Mood - Patient Data Lab Results Last 24 hrs: Laboratory Results - last 24 hr 02/28/21 03/01/21 03/01/21 Range/Units 06:00 06:10 06:10 WBC 8.6 (5.0-10.0) 10^3/uL RBC 3.04 L (4.6-6.2) 10^6/uL Hgb 9.8 L (14.0-18.0) g/dL Hct 31.9 L (40.0-54.0) % MCV 104.9 H (80-100) fL MCH 32.2 (27.0-34.0) pg MCHC 30.7 L (33.0-35.0) g/dL Plt Count 255 (150-450) 10^3/uL Neut % (Auto) 78.8 H (42.2-75.2) % Lymph % (Auto) 12.6 L (20.5-50.1) % [place] % (Auto) 8.0 (2-8) % Eos % (Auto) 0.6 L (1.0-3.0) % Baso % (Auto) 0.0 (0.0-1.0) % Sodium 147 H (136-145) mmol/L Potassium 3.3 L (3.5-5.1) mmol/L Chloride 109 H (98-107) mmol/L Carbon Dioxide 31 (21-32) mmol/L Anion Gap 10.3 (7-13) mEq/L BUN 51 H (7-18) mg/dL Creatinine 1.81 H (0.70-1.30) mg/dL Est Cr Clr Drug Dosing 29.84 mL/min Estimated GFR (MDRD) 36 Glucose 96 (70-99) mg/dL Calcium 8.1 L (8.5-10.1) mg/dL Vitamin B12 603 (193-986) pg/mL Folate 7.6 L (8.6-58.9) ng/mL Free T4 1.55 H (0.76-1.46) ng/dL TSH, Ultra Sensitive 1.01 (0.36-3.74) uIU/mL Result Diagrams: 03/01/21 06:10 03/01/21 06:10 Isreal Results Last 24 hrs: Microbiology 02/27/21 20:05 Aerobic Blood Culture - Preliminary Blood - Arm, Right NO GROWTH AFTER 1 DAY Anaerobic Blood Culture - Preliminary NO GROWTH AFTER 1 DAY Sepsis Event Note - Evaluation Sepsis Screening Result: No Definite Risk - Focused Exam Vital Signs: Vital Signs Temp Pulse Resp BP Pulse Ox 03/01/21 00:00 97.3 F 80 20 90/52 L 93 L 02/28/21 21:04 97.1 F 76 20 89/44 L 89 L - Problem List Review Problem List Initiated/Reviewed/Updated: Yes - My Orders Last 24 Hours: My Active Orders 02/28/21 09:00 Aspirin [Halfprin] 81 mg PO DAILY Divalproex Sodium [Depakote ER] 250 mg PO DAILY Donepezil [Aricept] 10 mg PO DAILY Heparin Sodium 5,000 units SUBCUT Q12HR Memantine [Namenda] 10 mg PO BID Sertraline [Zoloft] 100 mg PO DAILY atorvaSTATin [Lipitor] 40 mg PO DAILY 02/28/21 09:30 Docusate Sodium/Sennosides [Senna Plus] 2 tab PO BID Folic Acid 1 mg PO DAILY 02/28/21 14:30 polyethylene glycoL 3350 [MiraLAX] 17 gm PO DAILY 02/28/21 21:00 traZODone 50 mg PO BEDTIME 03/01/21 07:45 Dextrose 5% in Water @ 75 MLS/HR(1000ml) Dextrose 5% in Water 1,000 ml IV ASDIRECTED Potassium Chloride [Klor-Con 10] 40 meq PO Q2H 03/02/21 05:00 BASIC METABOLIC PANEL,BMP [CHEM] Routine HGB [HEMOGLOBIN] [HEME] Routine - Plan Plan:: Surgical History: Cholecystectomy, CABG, cardiac stent, right hemicolectomy, bilateral cataract surgery, oral surgery Family History: Cancer, stroke, coronary artery disease, hyperlipidemia Social History: Tobacco: Former smoker Alcohol: Denies Caffeine: Cola Drugs: Never Allergies: No known drug allergies Code Status: DNR, DNI Assessment / Plan: Small bowel obstruction and large bowel obstruction. Is notified by emergency department staffing that surgery was consulted at outside facility and they indicated that transfer was not indicated. IV D5W at 75 mL's per hour plus sennaS: 2 tabs p.o. twice daily plus MiraLAX 17 g p.o. daily Hypokalemia. Will monitor potassium levels intermittently and supplement as necessary Acute on chronic kidney disease, baseline creatinine approximately 1.5. Will monitor creatinine intermittently. IV D5W at 75 mils per hour Hyponatremia. Monitor sodium levels intermittently. IV D5W at 75 mL's per hour Alzheimer's dementia, likely advanced. Aricept 10 mg p.o. daily plus Namenda 10 mg p.o. twice daily Pneumonia. Azithromycin 500 mg IV daily plus Rocephin 1 g IV daily Depression. Depakote ER 250 mg p.o. daily plus Zoloft 100 mg p.o. daily plus trazodone 50 mg p.o. nightly Anemia of chronic disease/macrocytic anemia. Will monitor hemoglobin level intermittently Coronary artery disease, status post stent, status post CABG. aspirin 81 mg p.o. daily plus Lipitor 40 mg p.o. nightly GERD. Protonix 40 mg p.o. daily Hyperlipidemia. Lipitor 40 mg p.o. nightly Hypertension Erectile dysfunction History of esophageal strictures/Schatzki ring with history of esophageal dilatation Nephrolithiasis, asymptomatic History of colon cancer, status post right hemicolectomy Arthritis Chronic pain History of TIA. Aspirin 81 mg p.o. daily plus Lipitor 40 mg p.o. nightly Anxiety with history of panic attack Degenerative disc disease Peripheral vascular disease. Aspirin 81 mg p.o. daily plus Lipitor 40 mg p.o. nightly Folate deficiency. Folic acid 1 mg p.o. daily DVT prophylaxis. Heparin 5000 units subcutaneously every 12 hours Disposition: I will request that case management speak with the patient's to determine whether he may need more home services or whether he may require [facility] placement. I will request that the hospice agency speak with the patient's given his advanced dementia. Patient appears medically stable for discharge on this day of March 01, 2021 END OF DOCTOR EMAMIS HISTORY AND PHYSICAL / CONSULTATION NOTE
[2021-03-01] MEDS: Pantoprazole 40 MG Tab.CR PO SCH (08:00)
[2021-03-01] MEDS: Divalproex Sodium 250 MG Tab.ER PO SCH (09:42)
[2021-03-01] MEDS: Donepezil 10 MG Tab PO SCH (09:42)
[2021-03-01] MEDS: Potassium Chloride 10 MEQ Tab.ER PO SCH ×3 (09:42→11:16)
[2021-03-01] MEDS: Folic Acid 1 MG Tab PO SCH (09:42)
[2021-03-01] MEDS: Memantine 10 MG Tab PO SCH ×2 (09:42→21:15)
[2021-03-01] MEDS: atorvaSTATin 20 MG Tab PO SCH (09:42)
[2021-03-01] MEDS: Aspirin 81 MG Tab.EC PO SCH (09:42)
[2021-03-01] MEDS: Heparin Sodium 5,000 Units/ML Vial SUBCUT SCH ×2 (09:43→21:19)
[2021-03-01] MEDS: Sertraline 50 MG Tab PO SCH (09:43)
[2021-03-01] MEDS: Polyethylene Glycol 3350 Powder 17 GM Packet PO SCH (09:58)
[2021-03-01] MEDS ORDERED: Potassium Chloride 10% 20 MEQ/15 ML Soln 15 ML UD Cup PO ONE (10:15)
[2021-03-01] MEDS: Potassium Chloride 10% 20 MEQ/15 ML Soln 15 ML UD Cup PO SCH ×2 (10:24→12:27)
[2021-03-01] MEDS: Dextrose 5% in Water 1,000 ML IV SCH (12:28)
[2021-03-01] MEDS ORDERED: Water For Injection, Sterile 20 ML ONE (20:50)
[2021-03-01] MEDS: traZODone 50 MG Tab PO SCH (21:15)
[2021-03-01] MEDS: cefTRIAXone 1 GM Vial IVPUSH SCH (21:21)
[2021-03-01] MEDS: Azithromycin 500 MG in Sodium Chloride 0.9% 250 ML IV SCH (21:25)
[2021-03-02] MEDS: Dextrose 5% in Water 1,000 ML IV SCH (00:56)
[2021-03-02] MEDS: Pantoprazole 40 MG Tab.CR PO SCH (06:35)
[2021-03-02 06:49] LABS: ANION GAP 11.4 mEq/L (7-13)
--- NOTE | 2021-03-02 07:16 | PCM.PN ---
- General Info Date of Service: 03/02/21 Subjective Update: The patient has what appears to be at least severe dementia and is unable to provide feedback regarding his symptomatology - Review of Systems General: Reports: No Symptoms HEENT: Reports: No Symptoms Pulmonary: Reports: No Symptoms Cardiovascular: Reports: No Symptoms Gastrointestinal: Reports: No Symptoms Genitourinary: Reports: No Symptoms Musculoskeletal: Reports: No Symptoms Skin: Reports: No Symptoms Neurological: Reports: No Symptoms Psychiatric: Reports: No Symptoms - Patient Data Vitals - Most Recent: Last Vital Signs Temp 98.2 F 03/01/21 23:39 Pulse 72 03/01/21 23:39 Resp 18 03/01/21 23:39 BP 113/58 L 03/01/21 23:39 Pulse Ox 93 L 03/01/21 23:39 Weight - Most Recent: 161 lb 3.2 oz I&O - Last 24 Hours: Intake & Output 03/01/21 03/02/21 03/02/21 22:59 06:59 14:59 Intake Total 500 Balance 500 Lab Results Last 24 Hours: Laboratory Results - last 24 hr 03/02/21 03/02/21 Range/Units 06:15 06:15 Hgb 9.5 L (14.0-18.0) g/dL Sodium 142 (136-145) mmol/L Potassium 3.4 L (3.5-5.1) mmol/L Chloride 106 (98-107) mmol/L Carbon Dioxide 28 (21-32) mmol/L Anion Gap 11.4 (7-13) mEq/L BUN 32 H (7-18) mg/dL Creatinine 1.29 (0.70-1.30) mg/dL Est Cr Clr Drug Dosing 41.87 mL/min Estimated GFR (MDRD) 53 Glucose 112 H (70-99) mg/dL Calcium 7.7 L (8.5-10.1) mg/dL Isreal Results Last 24 Hours: Microbiology 02/27/21 20:05 Aerobic Blood Culture - Preliminary Blood - Arm, Right NO GROWTH AFTER 2 DAYS Anaerobic Blood Culture - Preliminary NO GROWTH AFTER 2 DAYS Med Orders - Current: Current Medications Acetaminophen (Acetaminophen 325 Mg Tab) 650 mg PO Q4H PRN PRN Reason: Pain (Mild 1-3)/fever Aspirin (Aspirin 81 Mg Tab.Ec) 81 mg PO DAILY [facility] Last Admin: 03/01/21 09:42 Dose: 81 mg Documented by: Atorvastatin Calcium (Atorvastatin 20 Mg Tab) 40 mg PO DAILY [facility] Last Admin: 03/01/21 09:42 Dose: 40 mg Documented by: Ceftriaxone Sodium (Ceftriaxone 1 Gm Vial) 1 gm IVPUSH Q24H [facility] Last Admin: 03/01/21 21:21 Dose: 1 gm Documented by: Divalproex Sodium (Divalproex Sodium 250 Mg Tab.Er) 250 mg PO DAILY [facility] Last Admin: 03/01/21 09:42 Dose: 250 mg Documented by: Donepezil HCl (Donepezil 10 Mg Tab) 10 mg PO DAILY [facility] Last Admin: 03/01/21 09:42 Dose: 10 mg Documented by: Folic Acid (Folic Acid 1 Mg Tab) 1 mg PO DAILY [facility] Last Admin: 03/01/21 09:42 Dose: 1 mg Documented by: Heparin Sodium (Porcine) (Heparin Sodium 5,000 Units/Ml Vial) 5,000 units SUBCUT Q12HR [facility] Last Admin: 03/01/21 21:19 Dose: 5,000 units Documented by: Azithromycin 500 mg/ Sodium (Chloride) 250 mls @ 250 mls/hr IV Q24H [facility] Last Infusion: 03/01/21 22:30 Dose: Infused Documented by: Memantine (Memantine 10 Mg Tab) 10 mg PO BID [facility] Last Admin: 03/01/21 21:15 Dose: 10 mg Documented by: Morphine Sulfate (Morphine 2 Mg/Ml Syringe) 1 mg IVPUSH Q4H PRN PRN Reason: Pain Last Admin: 02/28/21 10:10 Dose: 1 mg Documented by: Ondansetron HCl (Ondansetron 4 Mg/2 Ml Sdv) 4 mg IVPUSH Q4H PRN PRN Reason: Nausea/Vomiting Pantoprazole Sodium (Pantoprazole 40 Mg Tab.Cr) 40 mg PO ACBREAKFAST [facility] Last Admin: 03/02/21 06:35 Dose: Not Given Documented by: Polyethylene Glycol (Polyethylene Glycol 3350 Powder 17 Gm Packet) 17 gm PO DAILY [facility] Last Admin: 03/01/21 09:58 Dose: Not Given Documented by: Sertraline HCl (Sertraline 50 Mg Tab) 100 mg PO DAILY [facility] Last Admin: 03/01/21 09:43 Dose: 100 mg Documented by: Sodium Chloride (Sodium Chloride 0.9% 10 Ml Syringe) 10 ml FLUSH ASDIRECTED PRN PRN Reason: Keep Vein Open Trazodone HCl (Trazodone 50 Mg Tab) 50 mg PO BEDTIME [facility] Last Admin: 03/01/21 21:15 Dose: 50 mg Documented by: Discontinued Medications Docusate Sodium/Benzocaine (Benzocaine/Docusate Sodium 20-283 Mg/5 Ml Enema) 1 each RECTAL Q4H [facility] Last Admin: 02/27/21 22:23 Dose: 1 each Documented by: Docusate Sodium/Benzocaine (Benzocaine/Docusate Sodium 20-283 Mg/5 Ml Enema) 1 each RECTAL Q4H [facility] Stop: 02/28/21 06:01 Last Admin: 02/28/21 07:20 Dose: Not Given Documented by: Docusate Sodium/Benzocaine (Benzocaine/Docusate Sodium 20-283 Mg/5 Ml Enema) 1 each RECTAL ONETIME ONE Stop: 02/28/21 14:26 Last Admin: 02/28/21 14:54 Dose: 1 each Documented by: Piperacillin Sod/Tazobactam (Sod 3.375 gm/ Sodium Chloride) 100 mls @ 200 mls/hr IV ONETIME ONE Stop: 02/27/21 20:26 Last Admin: 02/27/21 20:24 Dose: 200 mls/hr Documented by: Sodium Chloride (Sodium Chloride 0.45%) 1,000 mls @ 75 mls/hr IV ASDIRECTED [facility] Last Admin: 03/01/21 06:10 Dose: 75 mls/hr Documented by: Sterile Water (Sterile Water For Injection) Confirm Administered Dose 20 mls @ as directed .ROUTE .STK-MED ONE Stop: 02/27/21 22:14 Last Admin: 02/27/21 22:30 Dose: Not Given Documented by: Potassium Chloride 20 meq/ (Premix) 100 mls @ 50 mls/hr IV Q2H [facility] Stop: 02/28/21 03:59 Last Admin: 02/28/21 02:57 Dose: 50 mls/hr Documented by: Sterile Water (Sterile Water For Injection) Confirm Administered Dose 20 mls @ as directed .ROUTE .STK-MED ONE Stop: 02/28/21 21:19 Last Admin: 03/01/21 11:06 Dose: Not Given Documented by: Dextrose/Water (Dextrose 5% In Water) 1,000 mls @ 75 mls/hr IV ASDIRECTED [facility] Last Admin: 03/02/21 00:56 Dose: 75 mls/hr Documented by: Sterile Water (Sterile Water For Injection) Confirm Administered Dose 20 mls @ as directed .ROUTE .STK-MED ONE Stop: 03/01/21 20:51 Last Admin: 03/01/21 21:20 Dose: 10 mls/hr Documented by: Lorazepam (Lorazepam 2 Mg/Ml Sdv) 1 mg IVPUSH ONETIME ONE Stop: 02/27/21 19:42 Last Admin: 02/27/21 19:54 Dose: 1 mg Documented by: Potassium Chloride (Potassium Chloride 10 Meq Tab.Er) 40 meq PO Q2H [facility] Stop: 03/01/21 10:01 Last Admin: 03/01/21 11:16 Dose: Not Given Documented by: Potassium Chloride (Potassium Chloride 10% 20 Meq/15 Ml Soln 15 Ml Ud Cup) 40 meq PO ONETIME ONE Stop: 03/01/21 10:16 Potassium Chloride (Potassium Chloride 10% 20 Meq/15 Ml Soln 15 Ml Ud Cup) 40 meq PO Q2H [facility] Stop: 03/01/21 12:16 Last Admin: 03/01/21 12:27 Dose: 40 meq Documented by: Senna/Docusate Sodium (Docusate Sodium/Sennosides 50-8.6 Mg Tab) 2 tab PO BID [facility] Last Admin: 03/01/21 10:23 Dose: Not Given Documented by: - Exam General: Alert, Oriented HEENT: Pupils Equal, Pupils Reactive, EOMI, Mucous Membr. Moist/[employer] Neck: Supple Lungs: Clear to Auscultation, Normal Respiratory Effort Cardiovascular: Regular Rate, Regular Rhythm GI/Abdominal Exam: Normal Bowel Sounds, Soft, Non-Tender, No Organomegaly, No Distention, No Abnormal Bruit, No Mass, Pelvis Stable Back Exam: Normal Inspection, Full Range of Motion Extremities: Normal Inspection, Normal Range of Motion, Non-Tender, No Pedal Edema, Normal Capillary Refill Peripheral Pulses: 2+: Carotid (L), Carotid (R), Brachial (L), Brachial (R), Radial (L), Radial (R), Femoral (L), Femoral (R), Popliteal (L), Popliteal (R), Posterior Tibial (L), Posterior Tibial (R), Dorsalis Pedis (L), Dorsalis Pedis (R) Skin: Warm, Dry, Intact Wound/Incisions: Healing Well Neurological: No New Focal Deficit Psy/Mental Status: Alert, Normal Affect, Normal Mood - Patient Data Lab Results Last 24 hrs: Laboratory Results - last 24 hr 03/02/21 03/02/21 Range/Units 06:15 06:15 Hgb 9.5 L (14.0-18.0) g/dL Sodium 142 (136-145) mmol/L Potassium 3.4 L (3.5-5.1) mmol/L Chloride 106 (98-107) mmol/L Carbon Dioxide 28 (21-32) mmol/L Anion Gap 11.4 (7-13) mEq/L BUN 32 H (7-18) mg/dL Creatinine 1.29 (0.70-1.30) mg/dL Est Cr Clr Drug Dosing 41.87 mL/min Estimated GFR (MDRD) 53 Glucose 112 H (70-99) mg/dL Calcium 7.7 L (8.5-10.1) mg/dL Result Diagrams: 03/02/21 06:15 03/02/21 06:15 Isreal Results Last 24 hrs: Microbiology 02/27/21 20:05 Aerobic Blood Culture - Preliminary Blood - Arm, Right NO GROWTH AFTER 2 DAYS Anaerobic Blood Culture - Preliminary NO GROWTH AFTER 2 DAYS Sepsis Event Note - Evaluation Sepsis Screening Result: No Definite Risk - Focused Exam Vital Signs: Vital Signs Temp Pulse Resp BP Pulse Ox 03/01/21 23:39 98.2 F 72 18 113/58 L 93 L 03/01/21 20:13 98.7 F 77 20 114/91 H 90 L - Problem List Review Problem List Initiated/Reviewed/Updated: Yes - My Orders Last 24 Hours: My Active Orders 03/01/21 Lunch Advance Diet Instructions [DIET] Pureed Diet [DIET] - Plan Plan:: Surgical History: Cholecystectomy, CABG, cardiac stent, right hemicolectomy, bilateral cataract surgery, oral surgery Family History: Cancer, stroke, coronary artery disease, hyperlipidemia Social History: Tobacco: Former smoker Alcohol: Denies Caffeine: Cola Drugs: Never Allergies: No known drug allergies Code Status: DNR, DNI Assessment / Plan: Small bowel obstruction and large bowel obstruction. Is notified by emergency department staffing that surgery was consulted at outside facility and they indicated that transfer was not indicated. MiraLAX 17 g p.o. daily Hypokalemia. Will monitor potassium levels intermittently. K. Dur 40 M EQ p.o. twice daily Acute on chronic kidney disease, baseline creatinine approximately 1.5. Will monitor creatinine intermittently. Hyponatremia. Monitor sodium levels intermittently. Alzheimer's dementia, likely advanced. Aricept 10 mg p.o. daily plus Namenda 10 mg p.o. twice daily Pneumonia. Azithromycin 500 mg IV daily plus Rocephin 1 g IV daily Depression. Depakote ER 250 mg p.o. daily plus Zoloft 100 mg p.o. daily plus trazodone 50 mg p.o. nightly Anemia of chronic disease/macrocytic anemia. Will monitor hemoglobin level intermittently Coronary artery disease, status post stent, status post CABG. aspirin 81 mg p.o. daily plus Lipitor 40 mg p.o. nightly GERD. Protonix 40 mg p.o. daily Hyperlipidemia. Lipitor 40 mg p.o. nightly Hypertension Erectile dysfunction History of esophageal strictures/Schatzki ring with history of esophageal dilatation Nephrolithiasis, asymptomatic History of colon cancer, status post right hemicolectomy Arthritis Chronic pain History of TIA. Aspirin 81 mg p.o. daily plus Lipitor 40 mg p.o. nightly Anxiety with history of panic attack Degenerative disc disease Peripheral vascular disease. Aspirin 81 mg p.o. daily plus Lipitor 40 mg p.o. nightly Folate deficiency. Folic acid 1 mg p.o. daily Hypermagnesemia. Will monitor magnesium levels intermittently DVT prophylaxis. Heparin 5000 units subcutaneously every 12 hours Disposition: The patient is medically stable for discharge on this day of March 02, 2021. I will discuss with case management/social work END OF DOCTOR EMAMIS HISTORY AND PHYSICAL / CONSULTATION NOTE
[2021-03-02] MEDS ORDERED: Potassium Chloride 10 MEQ Tab.ER PO SCH (08:00)
--- NOTE | 2021-03-02 08:55 | PCM.DCSUM1 ---
Discharge Summary - Hospital Course Free Text/Narrative:: START OF DOCTOR EMAMIS DISCHARGE SUMMARY Date of Admission: February 27, 2021 Date of Discharge: 8:44 AM on March 02, 2021 Primary Diagnosis: Small bowel obstruction and large bowel obstruction, resolved Secondary Diagnosis: Hypokalemia, status post treatment Acute on chronic kidney disease, baseline creatinine approximately 1.5 Hyponatremia, resolved Alzheimer's dementia, likely advanced Pneumonia Depression Anemia of chronic disease/macrocytic anemia Coronary artery disease, status post [place], status post CABG GERD Hyperlipidemia Hypertension Erectile dysfunction History of esophageal stricture/Schatzki ring with history of esophageal dilatation Nephrolithiasis, asymptomatic History: Cancer, status post right hemicolectomy Arthritis Chronic pain History of TIA Anxiety with history of panic attack Degenerative disc disease Peripheral vascular disease Folate deficiency Hypermagnesemia Consultations: None Condition on Discharge: Fair Disposition: The patient will be advised follow-up with his primary care physician or provider 7 to 10 days post discharge for posthospitalization evaluation Discharge Medications: Multivitamin 1 tab p.o. daily Vitamin D 1000 IU p.o. daily Proventil HFA: 90 mcg/spray: 2 puffs 4 times daily as needed shortness of breath/wheeze Trazodone 50 mg p.o. nightly Zoloft 100 mg p.o. daily K. Dur 40 M EQ p.o. twice daily Calmoseptine to be applied to affected area twice daily Azithromycin 250 mg p.o. daily. Quantity 4. 0 refills MiraLAX 17 g p.o. daily Protonix 40 mg p.o. daily Namenda 10 mg p.o. twice daily Folic acid 1 mg p.o. daily Aricept 10 mg p.o. daily Depakote ER 250 mg p.o. daily Lipitor 40 mg p.o. nightly Aspirin 81 mg p.o. daily END OF DOCTOR EMAMIS DISCHARGE SUMMARY - Discharge Data Discharge Date: 03/02/21 Discharge Disposition: Home, Self-Care 01 Condition: Fair - Referral to Home Health Primary Care Physician: PCP None - Patient Summary/Data Consults: Consultations 02/27/21 21:44 Consult to Case Management/Supervisor Tumblers [CONS] Routine 02/27/21 21:48 Consult to Hospice [CONS] Routine - Patient Instructions Diet: Heart Healthy Diet, Low Sodium, Renal Diet Activity: As Tolerated - Discharge Plan Prescriptions/Med Rec: Azithromycin 250 mg PO DAILY 4 Days #4 tablet Calmoseptine 1 applic TOP BID 30 Days Folic Acid 1 mg PO DAILY 30 Days #30 tablet Potassium Chloride [Klor-Con 10] 40 meq PO BIDMEALS 30 Days #240 tab.er polyethylene glycoL 3350 [MiraLAX] 17 gm PO DAILY 30 Days #30 packet Home Medications: Home Meds Aspirin [Ecotrin EC] 81 mg PO DAILY 11/15/13 [History] Cholecalciferol (Vitamin D3) [Vitamin D3] 1,000 unit PO DAILY 11/15/13 [History] Multivitamin [Multi-Vitamin Daily] 1 each PO DAILY 11/15/13 [History] Pantoprazole [ProTONIX] 40 mg PO DAILY 03/13/15 [History] Donepezil [Aricept] 10 mg PO DAILY 01/09/17 [History] atorvaSTATin [Lipitor] 40 mg PO DAILY 01/09/17 [History] Divalproex Sodium [Depakote ER] 250 mg PO DAILY 07/28/20 [History] Albuterol Sulfate [Albuterol Sulfate HFA] 2 puff INH QID 03/01/21 [History] Azithromycin 250 mg PO DAILY 4 Days #4 tablet 03/02/21 [Rx] Calmoseptine 1 applic TOP BID 30 Days 03/02/21 [Rx] Folic Acid 1 mg PO DAILY 30 Days #30 tablet 03/02/21 [Rx] Memantine [Namenda] 10 mg PO BID #0 tablet 03/02/21 [Rx] Potassium Chloride [Klor-Con 10] 40 meq PO BIDMEALS 30 Days #240 tab.er 03/02/21 [Rx] Sertraline [Zoloft] 100 mg PO DAILY tablet 03/02/21 [Rx] polyethylene glycoL 3350 [MiraLAX] 17 gm PO DAILY 30 Days #30 packet 03/02/21 [Rx] traZODone 50 mg PO BEDTIME tablet 03/02/21 [Rx] - Discharge Summary/Plan Comment DC Time >30 min.: Yes - General Info Date of Service: 03/02/21 - Review of Systems General: Reports: No Symptoms HEENT: Reports: No Symptoms Pulmonary: Reports: No Symptoms Cardiovascular: Reports: No Symptoms Gastrointestinal: Reports: No Symptoms Genitourinary: Reports: No Symptoms Musculoskeletal: Reports: No Symptoms Skin: Reports: No Symptoms Neurological: Reports: No Symptoms Psychiatric: Reports: No Symptoms - Patient Data Vitals - Most Recent: Last Vital Signs Temp 98.2 F 03/01/21 23:39 Pulse 72 03/01/21 23:39 Resp 18 03/01/21 23:39 BP 113/58 L 03/01/21 23:39 Pulse Ox 93 L 03/01/21 23:39 Weight - Most Recent: 161 lb 3.2 oz I&O - Last 24 hours: Intake & Output 03/01/21 03/02/21 03/02/21 22:59 06:59 14:59 Intake Total 500 Balance 500 Lab Results - Last 24 hrs: Laboratory Results - last 24 hr 03/02/21 03/02/21 Range/Units 06:15 06:15 Hgb 9.5 L (14.0-18.0) g/dL Sodium 142 (136-145) mmol/L Potassium 3.4 L (3.5-5.1) mmol/L Chloride 106 (98-107) mmol/L Carbon Dioxide 28 (21-32) mmol/L Anion Gap 11.4 (7-13) mEq/L BUN 32 H (7-18) mg/dL Creatinine 1.29 (0.70-1.30) mg/dL Est Cr Clr Drug Dosing 41.87 mL/min Estimated GFR (MDRD) 53 Glucose 112 H (70-99) mg/dL Calcium 7.7 L (8.5-10.1) mg/dL VANDANA Results - Last 24 hrs: Microbiology 02/27/21 20:05 Aerobic Blood Culture - Preliminary Blood - Arm, Right NO GROWTH AFTER 2 DAYS Anaerobic Blood Culture - Preliminary NO GROWTH AFTER 2 DAYS Med Orders - Current: Current Medications Acetaminophen (Acetaminophen 325 Mg Tab) 650 mg PO Q4H PRN PRN Reason: Pain (Mild 1-3)/fever Aspirin (Aspirin 81 Mg Tab.Ec) 81 mg PO DAILY [facility] Last Admin: 03/01/21 09:42 Dose: 81 mg Documented by: Atorvastatin Calcium (Atorvastatin 20 Mg Tab) 40 mg PO DAILY [facility] Last Admin: 03/01/21 09:42 Dose: 40 mg Documented by: Ceftriaxone Sodium (Ceftriaxone 1 Gm Vial) 1 gm IVPUSH Q24H [facility] Last Admin: 03/01/21 21:21 Dose: 1 gm Documented by: Divalproex Sodium (Divalproex Sodium 250 Mg Tab.Er) 250 mg PO DAILY [facility] Last Admin: 03/01/21 09:42 Dose: 250 mg Documented by: Donepezil HCl (Donepezil 10 Mg Tab) 10 mg PO DAILY [facility] Last Admin: 03/01/21 09:42 Dose: 10 mg Documented by: Folic Acid (Folic Acid 1 Mg Tab) 1 mg PO DAILY [facility] Last Admin: 03/01/21 09:42 Dose: 1 mg Documented by: Heparin Sodium (Porcine) (Heparin Sodium 5,000 Units/Ml Vial) 5,000 units SUBCUT Q12HR [facility] Last Admin: 03/01/21 21:19 Dose: 5,000 units Documented by: Azithromycin 500 mg/ Sodium (Chloride) 250 mls @ 250 mls/hr IV Q24H [facility] Last Infusion: 03/01/21 22:30 Dose: Infused Documented by: Memantine (Memantine 10 Mg Tab) 10 mg PO BID [facility] Last Admin: 03/01/21 21:15 Dose: 10 mg Documented by: Morphine Sulfate (Morphine 2 Mg/Ml Syringe) 1 mg IVPUSH Q4H PRN PRN Reason: Pain Last Admin: 02/28/21 10:10 Dose: 1 mg Documented by: Non-Formulary Medication (Calmoseptine) 1 applic TOP BID [facility] Ondansetron HCl (Ondansetron 4 Mg/2 Ml Sdv) 4 mg IVPUSH Q4H PRN PRN Reason: Nausea/Vomiting Pantoprazole Sodium (Pantoprazole 40 Mg Tab.Cr) 40 mg PO ACBREAKFAST [facility] Last Admin: 03/02/21 06:35 Dose: Not Given Documented by: Polyethylene Glycol (Polyethylene Glycol 3350 Powder 17 Gm Packet) 17 gm PO DAILY [facility] Last Admin: 03/01/21 09:58 Dose: Not Given Documented by: Potassium Chloride (Potassium Chloride 10 Meq Tab.Er) 40 meq PO BIDMEALS [facility] Sertraline HCl (Sertraline 50 Mg Tab) 100 mg PO DAILY [facility] Last Admin: 03/01/21 09:43 Dose: 100 mg Documented by: Sodium Chloride (Sodium Chloride 0.9% 10 Ml Syringe) 10 ml FLUSH ASDIRECTED PRN PRN Reason: Keep Vein Open Trazodone HCl (Trazodone 50 Mg Tab) 50 mg PO BEDTIME [facility] Last Admin: 03/01/21 21:15 Dose: 50 mg Documented by: Discontinued Medications Docusate Sodium/Benzocaine (Benzocaine/Docusate Sodium 20-283 Mg/5 Ml Enema) 1 each RECTAL Q4H [facility] Last Admin: 02/27/21 22:23 Dose: 1 each Documented by: Docusate Sodium/Benzocaine (Benzocaine/Docusate Sodium 20-283 Mg/5 Ml Enema) 1 each RECTAL Q4H [facility] Stop: 02/28/21 06:01 Last Admin: 02/28/21 07:20 Dose: Not Given Documented by: Docusate Sodium/Benzocaine (Benzocaine/Docusate Sodium 20-283 Mg/5 Ml Enema) 1 each RECTAL ONETIME ONE Stop: 02/28/21 14:26 Last Admin: 02/28/21 14:54 Dose: 1 each Documented by: Piperacillin Sod/Tazobactam (Sod 3.375 gm/ Sodium Chloride) 100 mls @ 200 mls/ hr IV ONETIME ONE Stop: 02/27/21 20:26 Last Admin: 02/27/21 20:24 Dose: 200 mls/hr Documented by: Sodium Chloride (Sodium Chloride 0.45%) 1,000 mls @ 75 mls/hr IV ASDIRECTED [facility] Last Admin: 03/01/21 06:10 Dose: 75 mls/hr Documented by: Sterile Water (Sterile Water For Injection) Confirm Administered Dose 20 mls @ as directed .ROUTE .STK-MED ONE Stop: 02/27/21 22:14 Last Admin: 02/27/21 22:30 Dose: Not Given Documented by: Potassium Chloride 20 meq/ (Premix) 100 mls @ 50 mls/hr IV Q2H [facility] Stop: 02/28/21 03:59 Last Admin: 02/28/21 02:57 Dose: 50 mls/hr Documented by: Sterile Water (Sterile Water For Injection) Confirm Administered Dose 20 mls @ as directed .ROUTE .STK-MED ONE Stop: 02/28/21 21:19 Last Admin: 03/01/21 11:06 Dose: Not Given Documented by: Dextrose/Water (Dextrose 5% In Water) 1,000 mls @ 75 mls/hr IV ASDIRECTED [facility] Last Admin: 03/02/21 00:56 Dose: 75 mls/hr Documented by: Sterile Water (Sterile Water For Injection) Confirm Administered Dose 20 mls @ as directed .ROUTE .STK-MED ONE Stop: 03/01/21 20:51 Last Admin: 03/01/21 21:20 Dose: 10 mls/hr Documented by: Lorazepam (Lorazepam 2 Mg/Ml Sdv) 1 mg IVPUSH ONETIME ONE Stop: 02/27/21 19:42 Last Admin: 02/27/21 19:54 Dose: 1 mg Documented by: Potassium Chloride (Potassium Chloride 10 Meq Tab.Er) 40 meq PO Q2H [facility] Stop: 03/01/21 10:01 Last Admin: 03/01/21 11:16 Dose: Not Given Documented by: Potassium Chloride (Potassium Chloride 10% 20 Meq/15 Ml Soln 15 Ml Ud Cup) 40 meq PO ONETIME ONE Stop: 03/01/21 10:16 Potassium Chloride (Potassium Chloride 10% 20 Meq/15 Ml Soln 15 Ml Ud Cup) 40 meq PO Q2H [facility] Stop: 03/01/21 12:16 Last Admin: 03/01/21 12:27 Dose: 40 meq Documented by: Senna/Docusate Sodium (Docusate Sodium/Sennosides 50-8.6 Mg Tab) 2 tab PO BID [facility] Last Admin: 03/01/21 10:23 Dose: Not Given Documented by: - Exam General: Reports: Alert, Oriented HEENT: Reports: Pupils Equal, Pupils Reactive, EOMI, Mucous Membr. Moist/[place] Neck: Reports: Supple Lungs: Reports: Clear to Auscultation, Normal Respiratory Effort Cardiovascular: Reports: Regular Rate, Regular Rhythm GI/Abdominal Exam: Normal Bowel Sounds, Soft, Non-Tender, No Organomegaly, No Distention, No Abnormal Bruit, No Mass, Pelvis Stable (Male) Exam: No: No Hernia, Normal Inspection, Normal Prostate, Circumcised Rectal (Males) Exam: No: Normal Exam, Normal Rectal Tone, Prostate Normal Back Exam: Reports: Normal Inspection, Full Range of Motion Extremities: Normal Inspection, Normal Range of Motion, Non-Tender, No Pedal Edema, Normal Capillary Refill Skin: Reports: Warm, Dry, Intact Wound/Incisions: Reports: Healing Well Neurological: Reports: No New Focal Deficit Psy/Mental Status: Reports: Alert, Normal Affect, Normal Mood
[2021-03-02 08:57] VITALS: BP 113/62; PULSE 64
[2021-03-02] MEDS ORDERED: CALMOSEPTINE TOP SCH (09:00)
[2021-03-02] MEDS: Memantine 10 MG Tab PO SCH (09:01)
[2021-03-02] MEDS: atorvaSTATin 20 MG Tab PO SCH (09:02)
[2021-03-02] MEDS: Divalproex Sodium 250 MG Tab.ER PO SCH (09:02)
[2021-03-02] MEDS: Aspirin 81 MG Tab.EC PO SCH (09:02)
[2021-03-02] MEDS: Folic Acid 1 MG Tab PO SCH (09:02)
[2021-03-02] MEDS: Heparin Sodium 5,000 Units/ML Vial SUBCUT SCH (09:02)
[2021-03-02] MEDS: Donepezil 10 MG Tab PO SCH (09:02)
[2021-03-02] MEDS: Sertraline 50 MG Tab PO SCH (09:02)
[2021-03-02] MEDS: Polyethylene Glycol 3350 Powder 17 GM Packet PO SCH (09:03)
== END 2021-03-02 12:30 | disposition home or self-care (01) | DRG 388 ==
LOC: DL.ED 17:19 → DL.MS 21:14 → UNDOADMIN 21:21 → DL.MS 21:21
PROVIDERS: ADMIT Internal Medicine; ATTEND Internal Medicine
DX: R10.84 Generalized abdominal pain (principal); K56.41 Fecal impaction; K56.609 Unspecified intestinal obstruction, unspecified as to partial versus complete obstruction; J18.9 Pneumonia, unspecified organism; E87.1 Hypo-osmolality and hyponatremia; E87.6 Hypokalemia; Z66 Do not resuscitate; N18.9 Chronic kidney disease, unspecified; Z85.038 Personal history of other malignant neoplasm of large intestine; N18.30 Chronic kidney disease, stage 3 unspecified; G30.9 Alzheimer's disease, unspecified; F02.80 Dementia in other diseases classified elsewhere, unspecified severity, without behavioral disturbance, psychotic disturbance, mood disturbance, and anxiety; F32.9 Major depressive disorder, single episode, unspecified; D53.9 Nutritional anemia, unspecified; Z85.828 Personal history of other malignant neoplasm of skin; I25.10 Atherosclerotic heart disease of native coronary artery without angina pectoris; Z91.02 Food additives allergy status; K21.9 Gastro-esophageal reflux disease without esophagitis; E78.5 Hyperlipidemia, unspecified; I12.9 Hypertensive chronic kidney disease with stage 1 through stage 4 chronic kidney disease, or unspecified chronic kidney disease; N52.9 Male erectile dysfunction, unspecified; N20.0 Calculus of kidney; M19.90 Unspecified osteoarthritis, unspecified site; D63.1 Anemia in chronic kidney disease; H54.7 Unspecified visual loss; M54.9 Dorsalgia, unspecified; E78.00 Pure hypercholesterolemia, unspecified; G89.29 Other chronic pain; Z20.822 Contact with and (suspected) exposure to COVID-19; F41.9 Anxiety disorder, unspecified; I73.9 Peripheral vascular disease, unspecified; E53.8 Deficiency of other specified B group vitamins; E83.41 Hypermagnesemia; Z79.82 Long term (current) use of aspirin; Z79.899 Other long term (current) drug therapy; Z86.73 Personal history of transient ischemic attack (TIA), and cerebral infarction without residual deficits; Z95.5 Presence of coronary angioplasty implant and graft; Z95.1 Presence of aortocoronary bypass graft; Z88.8 Allergy status to other drugs, medicaments and biological substances; Z87.891 Personal history of nicotine dependence; Z90.49 Acquired absence of other specified parts of digestive tract; Z98.41 Cataract extraction status, right eye; Z98.42 Cataract extraction status, left eye; Z98.890 Other specified postprocedural states
CPT/HCPCS: 36415; 74018; 74176; 80048; 80053; 82272; 82607; 82728; 82746; 83540; 83550; 83735; 84100; 84439; 84443; 85018; 85025; 87040; 96365; 96375; 99284; 99285-25; A9270-GY; J0456; J0696; J1644; J2060; J2270; J2543; J3480; J7030; J7050; J7060; U0002